=== PATIENT | female | born 1995 | race Caucasian/White ===

== ENCOUNTER 2018-01-29 13:58 | Outpatient (REF) | payer OTHER, SELFPAY ==
[2018-01-29 14:39] LABS: Tricyclic Antidepressants Negative (Negative)
[2018-01-29 14:51] LABS: *AMPHETAMINES SCREEN URINE Negative (Negative); *BARBITURATES SCREEN URINE Negative (Negative); *BENZODIAZEPINES SCREEN URINE Negative (Negative); Cannabinoids THC Negative (Negative); Cocaine Screen,Urine Negative (Negative); METHADONE URINE SCREEN Negative (Negative); OPIATES URINE SCREEN Negative (Negative)
[2018-01-30 15:11] LABS: Chlamydia Result Negative; GC Result Negative; Specimen Description CERVIX
[2018-02-04 11:58] LABS: Buprenorphine Negative; Norbuprenorphine Negative
== END 2018-01-29 14:18 ==
LOC: LBN 13:58
PROVIDERS: PCP Nurse Practitioner Family; Visit Provider Advanced Practice Midwife
DX: Z34.91 Encounter for supervision of normal pregnancy, unspecified, first trimester (principal); Z11.3 Encounter for screening for infections with a predominantly sexual mode of transmission; N89.8 Other specified noninflammatory disorders of vagina
CPT/HCPCS: 80307; 87491; 87591; 87086; 87480; 87510; 87660

== ENCOUNTER 2018-02-06 08:03 | Outpatient (CLI) | payer OTHER, SELFPAY ==
[2018-02-06 08:58] LABS: Abs Immature Grans 0.01 k/cumm (0.0-0.09); Absolute Basophil Count 0.03 k/cumm (0.0-0.2); Absolute Eosinophil Count 0.33 k/cumm (0.0-0.7); Absolute Lymphocyte Count 1.71 k/cumm (1.2-3.4); Absolute Monocyte Count 0.61 k/cumm (0.11-0.7); Absolute Neutrophil Count 7.02 k/cumm (1.2-6.7); Basophils % 0.3; Eosinophils % 3.4; HCT 34.6 % (36.0-46.0); HGB 11.5 g/dL (12.0-15.5); Immature Grans % 0.1; Lymphocytes % 17.6; Mean Corp. HGB Concentration 33.2 g/dL (32.0-36.0); Mean Corpuscular Hemoglobin 27.8 pg (27.0-33.0); Mean Corpuscular Volume 83.8 fL (80-95); Monocytes % 6.3; Neutrophils % 72.3; Platelet Count 293 x1000/uL (130-400); RBC 4.13 m/cumm (4.00-5.20); RBC Distribution Width 14.7 % (11.7-14.6); White Blood Cell Count 9.71 k/cumm (4.4-10.8)
[2018-02-06 09:00] LABS: Glucose,1 Hr (Glucola) 120 mg/dL (80-140)
[2018-02-06 09:52] LABS: TSH (W/Ref FT4) 2.72 uIU/mL (0.358-3.74)
[2018-02-07 10:25] LABS: HIV-1/2 Ag & Ab Screen Negative (NEGAT)
[2018-02-07 10:52] LABS: Hepatitis C Ab w Rflx HCV PCR Negative (NEGAT)
[2018-02-07 11:39] LABS: Hepatitis B Surface Ag Negative (NEGAT); Rubella IgG Ab (UVM) Positive; Syphilis Serology (RPR) Negative (Negative); Varicella IgG Antibody Positive
== END 2018-02-06 08:23 ==
PROVIDERS: PCP Nurse Practitioner Family; Visit Provider Advanced Practice Midwife
DX: Z34.91 Encounter for supervision of normal pregnancy, unspecified, first trimester (principal); Z11.4 Encounter for screening for human immunodeficiency virus [HIV]; Z11.59 Encounter for screening for other viral diseases; Z11.3 Encounter for screening for infections with a predominantly sexual mode of transmission; Z01.84 Encounter for antibody response examination
CPT/HCPCS: 80055; 82950; 86787; 86803; 86850; 86900; 86901; 87340; 87389; 84443; 86592; 86762

== ENCOUNTER 2018-03-27 14:30 | Outpatient (CLI) | payer OTHER, SELFPAY ==
[2018-03-29 16:19] LABS: AFP 41.8 ng/mL; Calculated age at EDD 20 years; Cigarette smoking status non-smoker; GA used in risk estimate Scan estimate; INHIBIN 114 pg/mL; IVF Pregnancy No; Initial or repeat testing Initial testing; Insulin dependent diabetes No; Maternal Weight 230 lbs; Number of Fetuses 1; Physician Phone Number 802-748-7300; Prev Down(T21)/Trisomy Pregnan No; Prev Pregnancy w/NTD No; RECOMMENDED FOLLOW UP None.; Results Summary Normal risk; hCG, TOTAL 24.6 IU/mL; hCG, TOTAL MoM 1.19 MoM; uE3 1.35 ng/mL; uE3 MoM 1.41 MoM
[2018-04-03 12:17] LABS: Result Summary NEGATIVE; Specimen WB Whole Blood
[2018-04-15 09:28] LABS: Specimen Whole Blood
== END 2018-03-27 14:50 ==
PROVIDERS: PCP Nurse Practitioner Family; Visit Provider Advanced Practice Midwife
DX: Z34.92 Encounter for supervision of normal pregnancy, unspecified, second trimester (principal); Z13.228 Encounter for screening for other metabolic disorders; Z36.89 Encounter for other specified antenatal screening
CPT/HCPCS: 36415; 81329; 81511; 81220

== ENCOUNTER 2018-04-04 01:24 | Outpatient (CLI) | payer OTHER, SELFPAY ==
--- NOTE | 2018-04-04 08:00 | DI.US_ITS ---
Many abnormalities cannot be diagnosed. A normal exam does not exclude a congenital anomaly. Radiology No. LMP: 11/28/17 Exam Date: 04/04/18 [facility] wks days on EDC ([facility]) 09/04/18 Confirmed: HISTORY: SURVEY, Z34.90 PREDICTED GESTATIONAL AGE NUMBER 18.1 weeks with a range of 17.1 week to 19.1 weeks. 1 Determined by_X__1STUS___LMP___HISTORY Info. pertaining to fetus # PLACENTA PRESENTATION Grade 0-1 Cephalic_X__ Anterior_X__Posterior___ Breech____ Right Left Transverse(head right___ Fundal___Low-lying___Previa___ Transverse(head left___ Varying BIOMETRY AMNIOTIC FLUID BPD: 43 mm 19.1 weeks Normal HC: 165 mm 19.1 weeks AC: 138 mm 19.1 weeks FL: 27 mm 18.1 weeks AMNIOTIC FLUID INDEX >26 WK CRL: mm weeks Cisterna Magna: 3.8 mm CI: RUQ: LUQ Cerebellum: 1.8 cm EFW: 256 grams 82nd Percentile RLQ: LLQ Total: cms Composite AGE= 18.6 wks EDC by US 08/30/18____ BIOPHYSICAL PROFILE ANATOMY IDENTIFIED SCORE 0/2 Heart: 4-Chamber__X_Rate:BPM__136__ LVOT: X RVOT:___NS Amniotic Fluid(>2cms)____ Stomach:___X____ Kidneys:__X Respirations (>30 secs) Bladder:____X____ Post. Fossa:____X Body Flex/Extension 3 vessel cord:____X___Ventricles: X cord insertion: X Lips:___X_ Extremity Flex/Extension spinal morphology: X___Nose:X Total Score= Palate:___X____ NS=not seen Routine examination. There is a single living intrauterine gestation. Estimated sonographic age is 18 weeks 6 days. No or placental abnormalities are identified. The right ventricular outflow tract was not visualized and the patient is scheduled to return 04/08/18 to complete the anatomic evaluation. IMPRESSION: Single living intrauterine gestation. Estimated sonographic age is 18 weeks 6 days. The patient is scheduled to return 04/08/18 to complete the anatomic evaluation.
== END 2018-04-04 01:44 ==
PROVIDERS: PCP Nurse Practitioner Family; Visit Provider Advanced Practice Midwife
DX: Z34.92 Encounter for supervision of normal pregnancy, unspecified, second trimester (principal)
CPT/HCPCS: 76805

== ENCOUNTER 2018-04-09 01:20 | Outpatient (CLI) | payer OTHER, SELFPAY ==
--- NOTE | 2018-04-09 12:11 | DI.US_ITS ---
SYMPTOMS/DIAGNOSIS: F/U RVOT, TO COMPLETE SURVEY LIMITED OB ULTRASOUND: Comparison is 04/04/18. There is a single living intrauterine gestation. The heart rate is 153 bpm. The right ventricular outflow tract was visualized and is unremarkable. The placenta is anterior without evidence of previa. The amniotic fluid is within normal limits. IMPRESSION: Single living intrauterine gestation. The right ventricular outflow tract was visualized and is grossly unremarkable. Many abnormalities cannot be diagnosed. A normal exam does not exclude a congenital anomaly. Radiology No. [id number] LMP: Exam Date: 04/09/18 [facility] wks days on EDC ([facility]) Confirmed: HISTORY: f/u RVOT PREDICTED GESTATIONAL AGE NUMBER 18+6 weeks with a range of 17+6 weeks to 19+6 weeks. 1 Determined by 1STUS X LMP___HISTORY Info. pertaining to fetus # PLACENTA PRESENTATION Grade I Cephalic___ Anterior X Posterior___ Breech____ Right Left Transverse(head right___ Fundal___Low-lying___Previa___ Transverse(head left___ Varying X BIOMETRY AMNIOTIC FLUID BPD: mm weeks Normal HC: mm weeks AC: mm weeks FL: mm weeks AMNIOTIC FLUID INDEX >26 WK CRL: mm weeks Cisterna Magna: mm CI: RUQ: LUQ Cerebellum: cm EFW: grams Percentile RLQ: LLQ Total: cms Composite AGE= wks EDC by US BIOPHYSICAL PROFILE ANATOMY IDENTIFIED SCORE 0/2 Heart: 4-Chamber___Rate: 153 BPM LVOT: RVOT: X Amniotic Fluid(>2cms)____ Stomach: Kidneys: Respirations (>30 secs) Bladder: Post. Fossa: Body Flex/Extension 3 vessel cord: Ventricles: cord insertion: Lips:____ Extremity Flex/Extension spinal morphology: Nose: Total Score= Palate: NS=not seen
== END 2018-04-09 01:40 ==
PROVIDERS: PCP Nurse Practitioner Family; Visit Provider Advanced Practice Midwife
DX: Z34.92 Encounter for supervision of normal pregnancy, unspecified, second trimester (principal); Z36.2 Encounter for other antenatal screening follow-up
CPT/HCPCS: 76815

== ENCOUNTER 2018-06-19 09:20 | Outpatient (CLI) | payer OTHER, SELFPAY ==
[2018-06-19 15:49] LABS: HCT 29.1 % (36.0-46.0); HGB 9.5 g/dL (12.0-15.5); Mean Corp. HGB Concentration 32.6 g/dL (32.0-36.0); Mean Corpuscular Hemoglobin 26.9 pg (27.0-33.0); Mean Corpuscular Volume 82.4 fL (80-95); Mean Platelet Volume 9.5 fL (8.0-11.0); Platelet Count 305 x1000/uL (130-400); RBC 3.53 m/cumm (4.00-5.20); RBC Distribution Width 12.5 % (11.7-14.6); White Blood Cell Count 12.79 k/cumm (4.4-10.8)
[2018-06-19 15:52] LABS: Glucose,1 Hr (Glucola) 122 mg/dL (80-140)
== END 2018-06-19 09:40 ==
PROVIDERS: PCP Nurse Practitioner Family; Visit Provider Advanced Practice Midwife
DX: Z34.93 Encounter for supervision of normal pregnancy, unspecified, third trimester (principal)
CPT/HCPCS: 36415; 82950; 85027

== ENCOUNTER 2018-07-04 00:40 | Outpatient (CLI) | payer OTHER, SELFPAY ==
--- NOTE | 2018-07-04 11:26 | DI.US_ITS ---
SYMPTOMS/DIAGNOSIS: SIZE > DATES, Z34.90 OB ULTRASOUND: Many abnormalities cannot be diagnosed. A normal exam does not exclude a congenital anomaly. Radiology No. [id number] LMP: Exam Date: [facility] wks days on EDC ([facility]) 09/04/18 Confirmed: HISTORY: PREDICTED GESTATIONAL AGE NUMBER 31+1 weeks with a range of 30+1 weeks to 32+1 weeks. 1 Determined by_X__1ST US___LMP___HISTORY PLACENTA PRESENTATION Grade I-II Cephalic_X__ Anterior_X__Posterior___ Breech____ Right Left Transverse(head right___ Fundal___Low-lying___Previa___ Transverse(head left___ Varying BIOMETRY AMNIOTIC FLUID BPD: 81 mm 32+5 weeks Normal HC: 289 mm 31+5 weeks AC: 276 mm 31+5 weeks FL: 62 mm 32+2 weeks AMNIOTIC FLUID INDEX >26 WK CRL: mm weeks Cisterna Magna: mm CI: 88 RUQ: 3.2 LUQ: 3.4 Cerebellum: cm EFW: 1870 grams Percentile: 66th RLQ: 3.6 LLQ: 4.0 Total: 14.1 cm Composite AGE= 32+1 wks EDC by US: 08/28/18 BIOPHYSICAL PROFILE ANATOMY IDENTIFIED SCORE 0/2 Heart: 4-Chamber___Rate:BPM 128 LVOT: RVOT: Amniotic Fluid(>2cms)____ Stomach: Kidneys: Respirations (>30 secs) Bladder: Post. Fossa: Body Flex/Extension 3 vessel cord: Ventricles: cord insertion: Lips:____ Extremity Flex/Extension spinal morphology: Nose: Total Score= Palate: NS=not seen
== END 2018-07-04 01:00 ==
PROVIDERS: PCP Nurse Practitioner Family; Visit Provider Advanced Practice Midwife
DX: O26.843 Uterine size-date discrepancy, third trimester (principal)
CPT/HCPCS: 76816

== ENCOUNTER 2018-07-09 17:53 | Emergency (ER) | payer OTHER, MEDICAID, SELFPAY ==
[2018-07-09 18:00] VITALS: BP 132/82; PULSE 84; RESP 16; TEMP 36.6; O2SAT 97
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
[2018-07-09] MEDS: Acetaminophen 325 MG TAB 650 MG PO (18:16)
[2018-07-09 18:43] VITALS: BP 133/68; PULSE 89; RESP 20; TEMP 36.7; O2SAT 98
== END 2018-07-09 18:45 | disposition home or self-care (01) ==
PROVIDERS: Emergency Provider Emergency Medicine; PCP Nurse Practitioner Family
DX: R51 Headache (principal); V47.1XXA Car passenger injured in collision with fixed or stationary object in nontraffic accident, initial encounter; Z3A.32 32 weeks gestation of pregnancy
CPT/HCPCS: 99282

== ENCOUNTER 2018-07-09 18:47 | Observation (INO) | payer OTHER, MEDICAID, SELFPAY | END 2018-07-09 23:02 | disposition home or self-care (01) | LOC: OBS 19:03 | PROVIDERS: Admitting Provider Advanced Practice Midwife; PCP Nurse Practitioner Family; Visit Provider Advanced Practice Midwife | DX: Z04.1 Encounter for examination and observation following transport accident (principal); Z3A.31 31 weeks gestation of pregnancy | CPT/HCPCS: G0378 ==

== ENCOUNTER 2018-07-26 02:45 | Outpatient (RCR) | payer OTHER, MEDICAID, SELFPAY ==
[2018-07-26] MEDS: IRON SUCROSE COMPLEX 200 MG in Normal Saline 100 ML 110 MG IVPB (14:05)
[2018-07-26] MEDS: Normal Saline Flush 10 ML SYR IVP (14:05)
== END 2018-07-30 23:59 | disposition home or self-care (01) ==
LOC: INF 02:45
PROVIDERS: PCP Nurse Practitioner Family; Visit Provider Advanced Practice Midwife
DX: O99.013 Anemia complicating pregnancy, third trimester (principal); Z3A.33 33 weeks gestation of pregnancy
CPT/HCPCS: 96365; J1756

== ENCOUNTER 2018-08-06 08:04 | Outpatient (CLI) | payer OTHER, MEDICAID, SELFPAY ==
--- NOTE | 2018-08-06 12:51 | DI.US_ITS ---
SYMPTOMS/DIAGNOSIS: SIZE GREATER THAN DATES LIMITED OBSTETRICAL ULTRASOUND: Predicted Gestational Age: Indication/History: SIZE > DATES 09/04/18 35+6 Wks Range: 34+6 to 36+6 Prior US done on: Determined by: First US LMP X History EDC by prior US: For multiple gestations: Baby PLACENTA: Grade: II Location: X Anterior Posterior PRESENTATION: RT LT LOW LYING PREVIA Cephalic X Trans (Head RT LT ) Varied Breech BIOMETRY: Anatomy Identified: BPD: 88 mm 35+2 wks 4 chamber Heart Heart Rate 137 BPM HC: 324 mm 36+5 wks LVOT Post Fossa AC: 315 mm 35+3 wks RVOT Ventricles FL: 70 mm 36 wks Stomach Nose Bladder Lips Cisterna Magna: mm CI: Kidneys Palate Cerebellum: mm 3 vessel cord Spine EFW: 2741 grms 45% Cord Insertion NS= not seen Composite Age (US) 35+6 wks Many abnormalities cannot be diagnosed. A normal exam does not exclude congenital abnormality. EDC by US 09/04/18 Amniotic Fluid Index: Normal COMMENTS: 6 POUNDS 1 OUNCE RUQ: 2.7 LUQ: 2.3 RLQ: 5.7 LLQ: 3.0 Total: 13.7 cm Biophysical Profile: Score 0/2 URSULA (>2cm) Respirations (>30 sec) Body flexion/extension Extremity flexion/extension TOTAL SCORE There is a single intrauterine gestation. Estimated sonographic age is 35 weeks 6 days. The fetus is in the cephalic presentation. heart rate is 137 beats per minute. anatomic evaluation was not performed at this time. Estimated weight is 2741 g, which is the 45th percentile. Amniotic fluid index is 13.7 cm. Visually, amniotic fluid appears within normal limits. The placenta is anterior without evidence of previa. IMPRESSION: Single living intrauterine gestation. Estimated sonographic age is 35 weeks 6 days.
== END 2018-08-06 08:24 ==
PROVIDERS: PCP Nurse Practitioner Family; Visit Provider Advanced Practice Midwife
DX: Z34.93 Encounter for supervision of normal pregnancy, unspecified, third trimester (principal); O26.843 Uterine size-date discrepancy, third trimester
CPT/HCPCS: 76816

== ENCOUNTER 2018-08-16 14:50 | Outpatient (CLI) | payer OTHER, MEDICAID, SELFPAY ==
[2018-08-16 15:26] LABS: HCT 33.6 % (36.0-46.0); HGB 11.2 g/dL (12.0-15.5); Mean Corp. HGB Concentration 33.3 g/dL (32.0-36.0); Mean Corpuscular Hemoglobin 28.1 pg (27.0-33.0); Mean Corpuscular Volume 84.4 fL (80-95); Mean Platelet Volume 10.4 fL (8.0-11.0); Platelet Count 270 x1000/uL (130-400); RBC 3.98 m/cumm (4.00-5.20); White Blood Cell Count 12.73 k/cumm (4.4-10.8)
[2018-08-16 16:35] LABS: ALT 31 U/L (12-78); AST 20 U/L (15-37); Albumin 2.5 g/dL (3.4-5.0); Alkaline Phosphatase 112 U/L (46-116); Bilirubin, Total 0.2 mg/dL (0.2-1.0); CREATININE 0.71 mg/dL (0.55-1.02)
[2018-08-17 14:40] LABS: Bilirubin, Direct 0.06 mg/dL (0.00-0.20); Uric Acid 5.3 mg/dL (2.6-6.0)
== END 2018-08-16 15:10 ==
PROVIDERS: PCP Nurse Practitioner Family; Visit Provider Advanced Practice Midwife
DX: Z34.93 Encounter for supervision of normal pregnancy, unspecified, third trimester (principal)
CPT/HCPCS: 36415; 80076; 85027; 82565; 84550

== ENCOUNTER 2018-08-16 16:35 | Outpatient (REF) | payer OTHER, MEDICAID, SELFPAY ==
[2018-08-16 17:59] LABS: PROTEIN 43.3 mg/dL
[2018-08-16 18:02] LABS: COMMENT (LAB VIEW ONLY) 256.63 mg/dL; Prot/Crea Ur Ratio 0.16
[2018-08-17 14:44] LABS: *AMPHETAMINES SCREEN URINE Negative (Negative); *BARBITURATES SCREEN URINE Negative (Negative); *BENZODIAZEPINES SCREEN URINE Negative (Negative); Cannabinoids THC Negative (Negative); Cocaine Screen,Urine Negative (Negative); METHADONE URINE SCREEN Negative (Negative); OPIATES URINE SCREEN Negative (Negative)
[2018-08-17 15:21] LABS: Tricyclic Antidepressants Negative (Negative)
[2018-08-23 13:53] LABS: Buprenorphine Negative; Norbuprenorphine Negative
== END 2018-08-16 16:55 ==
LOC: LBN 16:35
PROVIDERS: PCP Nurse Practitioner Family; Visit Provider Advanced Practice Midwife
DX: Z34.93 Encounter for supervision of normal pregnancy, unspecified, third trimester (principal); Z36.85 Encounter for antenatal screening for Streptococcus B
CPT/HCPCS: 80307; 82565; 84156; 87081

== ENCOUNTER 2018-08-23 00:51 | Outpatient (RCR) | payer OTHER, MEDICAID, SELFPAY ==
[2018-08-02] MEDS: IRON SUCROSE COMPLEX 200 MG in Normal Saline 100 ML 110 MG IVPB (13:27)
[2018-08-02] MEDS: Normal Saline Flush 10 ML SYR IVP (13:27)
[2018-08-09] MEDS: Normal Saline Flush 10 ML SYR IVP (13:28)
[2018-08-09] MEDS: IRON SUCROSE COMPLEX 200 MG in Normal Saline 100 ML 110 MG IVPB (13:28)
[2018-08-16] MEDS: Normal Saline Flush 10 ML SYR IVP (13:16)
[2018-08-16] MEDS: IRON SUCROSE COMPLEX 200 MG in Normal Saline 100 ML 110 MG IVPB (13:16)
[2018-08-23] MEDS: Normal Saline Flush 10 ML SYR IVP (13:11)
[2018-08-23] MEDS: IRON SUCROSE COMPLEX 200 MG in Normal Saline 100 ML 110 MG IVPB (13:11)
== END 2018-08-30 23:59 | disposition home or self-care (01) ==
LOC: INF 00:51
PROVIDERS: PCP Nurse Practitioner Family; Visit Provider Advanced Practice Midwife
DX: O99.013 Anemia complicating pregnancy, third trimester (principal); Z3A.37 37 weeks gestation of pregnancy
CPT/HCPCS: 96365; J1756

== ENCOUNTER 2018-08-27 12:09 | Inpatient (IN) | payer OTHER, MEDICAID, SELFPAY ==
[2018-08-27 13:55] LABS: HCT 36.8 % (36.0-46.0); HGB 12.1 g/dL (12.0-15.5); Mean Corp. HGB Concentration 32.9 g/dL (32.0-36.0); Mean Corpuscular Hemoglobin 27.8 pg (27.0-33.0); Mean Corpuscular Volume 84.6 fL (80-95); Mean Platelet Volume 10.7 fL (8.0-11.0); Platelet Count 262 x1000/uL (130-400); RBC 4.35 m/cumm (4.00-5.20); RBC Distribution Width 18.7 % (11.7-14.6); White Blood Cell Count 12.27 k/cumm (4.4-10.8)
[2018-08-27] MEDS: Lactated Ringers 1,000 ML 125 ML IV (14:26)
[2018-08-27] MEDS: miSOPROStol 50 MCG TAB PO (23:07)
[2018-08-27] MEDS: Normal Saline Flush 10 ML SYR IVP (23:07)
[2018-08-28] MEDS: Zolpidem 5 MG TAB 10 MG PO (00:54)
[2018-08-28] MEDS: miSOPROStol 50 MCG TAB PO (03:53)
[2018-08-28] MEDS: Lactated Ringers 1,000 ML 125 ML IV (13:55)
[2018-08-28] MEDS: Lidocaine 1% Multi-Dose 20 ML VIAL ×2 (15:03)
[2018-08-28] MEDS: Acetaminophen 325 MG TAB 650 MG PO (16:09)
[2018-08-28] MEDS: Docusate Sodium 100 MG CAP PO (16:38)
[2018-08-28] MEDS: Hamamelis Leaf/Glycerin 100 EACH BOX PR (16:38)
[2018-08-28] MEDS: Ibuprofen 600 MG TAB PO (18:14)
[2018-08-28] MEDS: Omeprazole 20 MG CAPCR PO (21:06)
[2018-08-29] MEDS: Ibuprofen 600 MG TAB PO ×3 (05:15→22:33)
[2018-08-29 07:25] LABS: HCT 31.5 % (36.0-46.0); Mean Corp. HGB Concentration 31.7 g/dL (32.0-36.0); Mean Corpuscular Hemoglobin 27.5 pg (27.0-33.0); Mean Corpuscular Volume 86.8 fL (80-95); Mean Platelet Volume 10.4 fL (8.0-11.0); Platelet Count 201 x1000/uL (130-400); RBC 3.63 m/cumm (4.00-5.20); RBC Distribution Width 19.1 % (11.7-14.6)
[2018-08-29] MEDS: Hamamelis Leaf/Glycerin 100 EACH BOX PR (09:38)
[2018-08-29] MEDS: Normal Saline Flush 10 ML SYR IVP (09:39)
[2018-08-29] MEDS: Acetaminophen 325 MG TAB 650 MG PO ×3 (09:47→21:54)
[2018-08-29] MEDS: Omeprazole 20 MG CAPCR PO (20:02)
[2018-08-29] MEDS: FLUoxetine 20 MG CAP PO (20:02)
[2018-08-30] MEDS: Acetaminophen 325 MG TAB 650 MG PO ×2 (06:12→14:41)
[2018-08-30] MEDS: Hamamelis Leaf/Glycerin 100 EACH BOX PR (11:11)
[2018-08-30] MEDS: Docusate Sodium 100 MG CAP PO (11:12)
[2018-08-30] MEDS: Ibuprofen 600 MG TAB PO (14:42)
== END 2018-08-30 15:15 | disposition home or self-care (01) | DRG 807 ==
PROVIDERS: Advanced Practice Midwife; Admitting Provider Advanced Practice Midwife; PCP Nurse Practitioner Family; Visit Provider Advanced Practice Midwife
DX: O42.02 Full-term premature rupture of membranes, onset of labor within 24 hours of rupture (principal); Z37.0 Single live birth; O76 Abnormality in fetal heart rate and rhythm complicating labor and delivery; O70.1 Second degree perineal laceration during delivery; Z3A.38 38 weeks gestation of pregnancy; O99.214 Obesity complicating childbirth; E66.01 Morbid (severe) obesity due to excess calories; O99.02 Anemia complicating childbirth; D64.9 Anemia, unspecified; O99.344 Other mental disorders complicating childbirth; F32.9 Major depressive disorder, single episode, unspecified; Z79.82 Long term (current) use of aspirin; Z67.10 Type A blood, Rh positive
CPT/HCPCS: 36415; 85027; 86850; 86900; 86901; 59200; J3490

== ENCOUNTER 2019-01-08 18:00 | Emergency (ER) | payer BC, SELFPAY ==
[2019-01-08 18:35] VITALS: BP 102/59; RESP 16; TEMP 36.5; O2SAT 95
[2019-01-08 19:55] VITALS: BP 112/73; PULSE 62; RESP 18; TEMP 36.4; O2SAT 98
--- NOTE | 2019-01-08 19:59 | ED.GENADUL_ITS ---
Discharge Plan Disposition Patient Disposition: HOME Condition: Good Discharge Details Chief Complaint: Sorethroat Clinical Impression: Upper respiratory infection, viral Primary Care Provider: Cindy Hill ED Provider: Julio Zimmemran Home Meds and New Rx's Prescriptions: Continued albuterol sulfate [ProAir HFA] 90 mcg/actuation HFA aerosol inhaler 2 puff IH PRN PRNRF: 0 (DME) inhaler,assist devices,access device See Dose Instructions .ROUTE .MEDSUPPLY Qty: 1 RF: 0 norethindrone (contraceptive) [Mehnaz] 0.35 mg tablet 0.35 mg PO DAILY Qty: 28 RF: 11 loratadine 10 MG tablet 10 mg PO PRN PRNRF: 0 omeprazole 20 mg tablet,delayed release (DR/EC) 20 - 40 mg PO DAILY Qty: 180 RF: 4 fluoxetine 20 mg capsule 20 mg PO DAILY Qty: 30 RF: 3 Discharge Instructions Instructions: Upper Respiratory Infection (ED) Additional Instructions: This is likely viral so you are still contagious. Good hand washing and respiratory precautions. Rest, fluids and Tylenol or Motrin for pain/discomfort. Follow up with PCP next week if not doing better. Strep culture is pending. Return to ED for inability to swallow, difficulty breathing, mental status changes, severe headache, vomiting, other concerns. Referrals: Cindy Hill, JULIO [Primary Care Provider] - Discharge Data Discharge Date/Time-TO BE ENTERED AT DEPARTURE: 01/08/19 20:10 Medical Decision Making Rapid strep is negative. Patient likely with a viral illness including sinus and nasal congestion with postnasal drip and sore throat. Strep culture has been sent. Patient instructed on hand hygiene and respiratory adequate. Tylenol Motrin as needed for pain discomfort. Fluids to stay hydrated. Follow- up with primary care next week if not significantly better. Return to ED if inability to swallow, difficulty breathing, worsening headaches, neurologic changes, vomiting, other concerns. HPI General Mode of arrival: ambulatory . Date/Time Provider Initiated Documentation: 01/08/19 19:52 . Limitations to Documentation: no limitations . Information obtained by: patient and RN notes reviewed . HPI Narrative: Patient presents to ED with complaint of sore throat, congestion for the last few days. She has a slight cough. She denies fever. She has a lot of sinus pressure and congestion. She denies earaches. She denies difficulty breathing. She denies nausea vomiting. She is concerned for strep throat and came in for evaluation. Related Data Home Medications Medication Instructions Recorded Confirmed loratadine 10 mg PO PRN PRN 02/15/16 01/08/19 albuterol sulfate 90 mcg/actuation 2 puff IH PRN PRN 12/11/17 01/08/19 aerosol inhaler inhaler,assist devices,access #1 each 12/11/17 10/09/18 omeprazole 20 mg tablet,delayed 20 - 40 mg PO DAILY #180 tab 08/21/18 01/08/19 release norethindrone (contraceptive) 0.35 0.35 mg PO DAILY #28 tab 10/09/18 01/08/19 mg tablet fluoxetine 20 mg capsule 20 mg PO DAILY #30 cap 11/27/18 01/08/19 Previous Rx's Medication Instructions Recorded omeprazole 20 mg tablet,delayed 20 - 40 mg PO DAILY #180 tab 08/21/18 release norethindrone (contraceptive) 0.35 0.35 mg PO DAILY #28 tab 10/09/18 mg tablet fluoxetine 20 mg capsule 20 mg PO DAILY #30 cap 11/27/18 Allergies Allergy/AdvReac Type Severity Reaction Status Date / Time erythromycin ethylsuccinate Allergy Verified 01/08/19 18:39 [From Pediazole] General Stated Complaint: Sorethroat LORENE: 4 Review of Systems Review of Systems Narrative: As documented in HPI otherwise negative as below. Const: no fever, chills, weakness Resp: no cough, SOB, pleuritic pain CV: no CP, diaphoresis, edema, syncope GI: no abdominal pain, nausea, vomiting, diarrhea Neuro: no headache, numbness, focal weakness, confusion [facility] Medical History Asthma, exercise induced BMI 38.0-38.9,adult (Chronic) Family history of factor V Leiden mutation (Chronic) Maternal aunt GERD (gastroesophageal reflux disease) (Chronic 10/15/17) Heart murmur Intermittent asthma (Chronic 08/17/15) Major depressive disorder (Acute 10/15/17) Surgical History Myringotomy w/ PE (pressure equalizing) tubes (08/30/01) bilateral Oral surgery 2015 [place] teeth Tooth extraction Social History Smoking/Tobacco Use Status: Never Alcohol Intake: never Drug use: Never Substance use type: does not use Pets and animals: Yes Pets and animals: dog(s) Frequency: daily Special zheng needs: No Seatbelt use: always Helmet use: Yes Do you feel safe at home: Yes Do you feel safe in your relationship?: Yes Female Reproductive History Menstrual control method: none History History 1 Para 0 Hx # Term Pregnancies 0 Multiple births 0 Hx # Pregnancies 0 Ectopic pregnancies 0 AB induced 0 Hx Number of Living Children 1 AB spontaneous 0 Past Pregnancies Del. Date GA/Weeks # Outcome Route Wgt Sex Labor Lgth Anesthes ia Location Prov Complic 08/28/18 39 No Successful vaginal 3.487 kg Male 8 hrs. 27 min. Shaylee Beebe CNM Delivery Date: 08/28/18 On 08/29/18 @ 13:51 Bhumi San LPN premature rupture of membranes induction- reason/premature rupture of membranes Exam Narrative Exam Narrative: Vitals: Afebrile. Normal vital signs and room air pulse oximetry. Const: Obese female in NAD. HEENT: NC/AT. Normal facial exam.. TMs normal. No sinus tenderness. OP with erythema and fairly large but symmetric tonsils. No ulcers or exudate. Some posterior oropharyngeal cobblestoning. Eyes: Normal conjunctiva and sclera. Neck: Supple. Trachea midline. No adenopathy. Lungs: Normal respiratory effort. Lungs are clear. Cor: RRR without murmur/gallop. Good radial pulses. Neuro: A+O x 3. CN grossly in tact. Good strength and no focal deficit. Skin: Warm and dry without rash. Course Vital Signs Vital signs: Vital Signs Temperature 97.7 F 01/08/19 18:35 Respiratory Rate 16 01/08/19 18:35 Blood Pressure 102/59 L 01/08/19 18:35 Pulse Oximetry 95 01/08/19 18:35 Temperature 97.5 F L 01/08/19 19:55 Temperature Source Skin 01/08/19 19:55 Pulse 62 01/08/19 19:55 Respiratory Rate 18 01/08/19 19:55 Respiratory Effort 01/08/19 18:43 Blood Pressure 112/73 01/08/19 19:55 Blood Pressure Position Sitting 01/08/19 18:35 Pulse Oximetry 98 01/08/19 19:55 Oxygen Delivery Method Room Air 01/08/19 19:55 Oxygen Flow Rate 0 01/08/19 19:55 Pain Level 6 01/08/19 18:35 Lab/Test Results Lab/Test Results: 01/08/19 19:52 Pharynx Streptococcus Screen (SHYANN) - Pending POC Strep Test-CHALINO(Rapid) Start: 01/08/19 18:43 Freq: .Rapid Strep Test Status: Active Protocol: Document 01/08/19 19:51 MM (Rec: 01/08/19 19:51 MM [id number]) Strep test-CHALINO(Rapid)-POC POC-Strep test-CHALINO (Rapid) Negative POC-Strep test-CHALINO (Rapid) Negative
== END 2019-01-08 20:10 | disposition home or self-care (01) ==
PROVIDERS: Emergency Provider Emergency Medicine; PCP Nurse Practitioner Family
DX: J06.9 Acute upper respiratory infection, unspecified (principal)
CPT/HCPCS: 87880; 99282; 87081

== ENCOUNTER 2019-04-30 18:57 | Emergency (ER) | payer MEDICAID, SELFPAY ==
[2019-04-30 18:59] VITALS: BP 118/78; PULSE 72; RESP 20; TEMP 37; O2SAT 98
--- NOTE | 2019-04-30 19:08 | W.ED.GENAD ---
Discharge Plan Disposition Patient Disposition: HOME Condition: Stable Discharge Details Chief Complaint: EarProblem Clinical Impression: Acute left otitis media Primary Care Provider: Cindy Hill ED Provider: Maxim Minaya Home Meds and New Rx's Prescriptions: Continued amoxicillin-pot clavulanate 875-125 mg tablet 1 tab PO Q12H Qty: 14 RF: 0 omeprazole 20 mg capsule,delayed release(DR/EC) 20 mg PO DAILY Qty: 90 RF: 4 famotidine 20 mg tablet 20 mg PO QHS Qty: 90 RF: 4 albuterol sulfate [ProAir HFA] 90 mcg/actuation HFA aerosol inhaler 2 puff IH PRN PRNRF: 0 (DME) inhaler,assist devices,access device See Dose Instructions .ROUTE .MEDSUPPLY Qty: 1 RF: 0 norethindrone (contraceptive) [Mehnaz] 0.35 mg tablet 0.35 mg PO DAILY Qty: 28 RF: 11 loratadine 10 MG tablet 10 mg PO PRN PRNRF: 0 omeprazole 20 mg tablet,delayed release (DR/EC) 20 - 40 mg PO DAILY Qty: 180 RF: 4 fluoxetine 20 mg capsule 20 mg PO DAILY Qty: 30 RF: 3 Discharge Instructions Instructions: Otitis Media (ED) Additional Instructions: Continue the previously prescribed Augmentin. Please take the next dose of prescribed prednisone tomorrow. Tylenol and/or ibuprofen as needed for pain. Stay liberally hydrated. Return for any acute concerns. Medical Decision Making 23-year-old female who is currently breast-feeding. She was seen in the office earlier today for 6 approximately 6 days of sinus pain and pressure for which she was started on Augmentin. Tonight she complains of left ear pain and seeks reevaluation. She does have evidence of acute left otitis media, there is no perforation, no foreign object present. We will trial a small moderate burst of prednisone for anti-inflammatory properties to ease her ear congestion. She will continue the previously prescribed Augmentin as well as iipn-eyj-orvpjen pain medicines as needed. HPI General Mode of arrival: ambulatory. Date/Time Provider Initiated Documentation: 04/30/19 18:58. Limitations to Documentation: no limitations. Information obtained by: patient. History of Present Illness 23 year old F presents to the emergency department with the chief complaint of Left ear pain, described as moderate and similar to prior episodes, and is localized to the head and left. Patient reports no radiation. Patient started experiencing this hour(s) and it has been constant. No relieving factors improve symptom(s), No exacerbating factors reported . Patient notes other (Sinus pain and pressure for nearly a week). Patient did receive the following treatments prior to arrival, other (Started on Augmentin earlier today) Related Data Home Medications Medication Instructions Recorded Confirmed loratadine 10 mg PO PRN PRN 02/15/16 04/30/19 albuterol sulfate 90 mcg/actuation 2 puff IH PRN PRN 12/11/17 04/30/19 aerosol inhaler inhaler,assist devices,access #1 each 12/11/17 04/30/19 omeprazole 20 mg tablet,delayed 20 - 40 mg PO DAILY #180 tab 08/21/18 04/30/19 release norethindrone (contraceptive) 0.35 0.35 mg PO DAILY #28 tab 10/09/18 04/30/19 mg tablet fluoxetine 20 mg capsule 20 mg PO DAILY #30 cap 11/27/18 04/30/19 amoxicillin 875 mg-potassium 1 tab PO Q12H #14 tab 04/30/19 04/30/19 clavulanate 125 mg tablet famotidine 20 mg tablet 20 mg PO QHS #90 tab 04/30/19 04/30/19 omeprazole 20 mg capsule,delayed 20 mg PO DAILY #90 cap 04/30/19 04/30/19 release Previous Rx's Medication Instructions Recorded omeprazole 20 mg tablet,delayed 20 - 40 mg PO DAILY #180 tab 08/21/18 release norethindrone (contraceptive) 0.35 0.35 mg PO DAILY #28 tab 10/09/18 mg tablet fluoxetine 20 mg capsule 20 mg PO DAILY #30 cap 11/27/18 amoxicillin 875 mg-potassium 1 tab PO Q12H #14 tab 04/30/19 clavulanate 125 mg tablet famotidine 20 mg tablet 20 mg PO QHS #90 tab 04/30/19 omeprazole 20 mg capsule,delayed 20 mg PO DAILY #90 cap 04/30/19 release Allergies Allergy/AdvReac Type Severity Reaction Status Date / Time erythromycin ethylsuccinate Allergy Verified 04/30/19 19:01 [From Pediazole] General Stated Complaint: EarProblem LORENE: 4 Review of Systems Narrative: 6 systems reviewed and otherwise negative [facility], [facility] Medical History Allergic rhinitis (Chronic) GERD (gastroesophageal reflux disease) (Chronic) Major depressive disorder (Chronic) Mild intermittent asthma (Inactive) Mostly exercise induced Social History Smoking/Tobacco Use Status: Never Alcohol Intake: never Drug use: Never Substance use type: does not use Pets and animals: Yes Pets and animals: dog(s) Frequency: daily Special zheng needs: No Seatbelt use: always Helmet use: Yes Do you feel safe at home: Yes Do you feel safe in your relationship?: Yes Female Reproductive History Menstrual control method: none History History 1 Para 0 Hx # Term Pregnancies 0 Multiple births 0 Hx # Pregnancies 0 Ectopic pregnancies 0 AB induced 0 Hx Number of Living Children 1 AB spontaneous 0 Past Pregnancies Del. Date GA/Weeks # Outcome Route Wgt Sex Labor Lgth Anesthesia Location Prov Complic 08/28/18 39 No Successful vaginal 3.487 kg Male 8 hrs. 27 min. Shaylee Beebe CNM Delivery Date: 08/28/18 On 08/29/18 @ 13:51 Bhumi San LPN premature rupture of membranes induction- reason/premature rupture of membranes Exam Narrative Exam Narrative: GEN: awake, alert, oriented 3. Pleasant, well groomed, interactive. HEAD: Normocephalic, atraumatic ENT: Mucous membranes moist, oropharynx unremarkable, left tympanic membrane distended and erythematous, right tympanic membrane unremarkable. External ear exam unremarkable EYES: PERRL, EOMI NECK: Full ROM, no ABEL, no menigismus CHEST/RESP: Nontender, clear to auscultation bilateral, no wheeze/rhonchi/rales CARDIOVASCULAR: RRR, no murmur, rub jonnathan. 2+ Rad pulse bilateral Neuro: Grossly normal neurologic exam, conversant, interactive. Psych: Speech fluent, thoughts congruent, affect normal Course Vital Signs Vital signs: Vital Signs Temperature 37 C 04/30/19 18:59 Pulse 72 04/30/19 18:59 Respiratory Rate 20 04/30/19 18:59 Blood Pressure 118/78 04/30/19 18:59 Pulse Oximetry 98 04/30/19 18:59 Temperature 37 C 04/30/19 18:59 Temperature Source Temporal Artery Scan 04/30/19 18:59 Pulse 72 04/30/19 18:59 Respiratory Rate 20 04/30/19 18:59 Respiratory Effort Non-Labored 04/30/19 19:03 Blood Pressure 118/78 04/30/19 18:59 Pulse Oximetry 98 04/30/19 18:59 Oxygen Delivery Method Room Air 04/30/19 18:59 Oxygen Flow Rate 0 04/30/19 18:59 Pain Level 8 04/30/19 19:03
[2019-04-30] MEDS: predniSONE 20 MG TAB 40 MG PO (19:14)
[2019-04-30] MEDS: Acetaminophen 500 MG TAB 1000 MG PO (19:14)
[2019-04-30 19:15] VITALS: BP 118/78; PULSE 72; RESP 20; O2SAT 98
== END 2019-04-30 19:25 | disposition home or self-care (01) ==
LOC: ER 19:12
PROVIDERS: Emergency Provider Emergency Medicine; PCP Nurse Practitioner Family
DX: H66.92 Otitis media, unspecified, left ear (principal)
CPT/HCPCS: 99283; J7512

== ENCOUNTER 2019-12-03 10:01 | Emergency (ER) | payer MEDICAID, SELFPAY ==
[2019-12-03 10:07] VITALS: BP 120/89; PULSE 73; RESP 16; TEMP 36.9; O2SAT 97
--- NOTE | 2019-12-03 10:20 | ED.GENADUL_ITS ---
Discharge Plan Disposition Patient Disposition: HOME Condition: Good Discharge Details Chief Complaint: Sorethroat Clinical Impression: Pharyngitis Primary Care Provider: Cindy Hill ED Provider: Randall Lakhani Home Meds and New Rx's Prescriptions: Continued omeprazole 20 mg capsule,delayed release(DR/EC) 20 mg PO DAILY Qty: 90 RF: 4 albuterol sulfate [ProAir HFA] 90 mcg/actuation HFA aerosol inhaler 2 puff IH PRN PRNRF: 0 (DME) inhaler,assist devices,access device See Dose Instructions .ROUTE .MEDSUPPLY Qty: 1 RF: 0 norethindrone (contraceptive) [Mehnaz] 0.35 mg tablet 0.35 mg PO DAILY Qty: 28 RF: 11 loratadine 10 MG tablet 10 mg PO PRN PRNRF: 0 omeprazole 20 mg tablet,delayed release (DR/EC) 20 - 40 mg PO DAILY Qty: 180 RF: 4 fluoxetine 20 mg capsule 20 mg PO DAILY Qty: 30 RF: 3 Discharge Instructions Instructions: Pharyngitis (ED) Additional Instructions: At this time your strep test is negative, your symptoms are likely from a virus. These usually improve after 72 hours. Please gargle with salt water 2-3 times per day. Take Tylenol and Motrin to help with the swelling and pain. If you notice any worsening of your symptoms, or any new symptoms such as vomiting, diarrhea, fever, chills, shortness of breath, chest pain, numbness, weakness, or fainting , please return immediately to the emergency department for reevaluation. Please follow up with your primary care provider as soon as possible for reassessment and reevaluation. As always, it was a pleasure participating in your medical care today. Referrals: Cindy Hill NP [Primary Care Provider] - Discharge Data Discharge Date/Time-TO BE ENTERED AT DEPARTURE: 12/03/19 10:30 Medical Decision Making 24-year-old female with a past medical history of asthma presents for sore throat for the last 2 days. She denies any cough, fever or chills, no neck pain or headache. She does have history of enlarged tonsils at baseline. She denies any complaints of difficulty swallowing. 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 No other complaints at this time. No other modifying factors. Physical exam demonstrates a notably unremarkable posterior oropharynx aside for mild tonsillar enlargement which appears to be her baseline, they are notably noninfectious looking at this time. Strep test is negative, symptoms appear inconsistent with mono, with no splenomegaly on exam, or spleen tenderness. No known sick contacts with mono recently. No signs of airway compromise. This time with no significant fatigue and signs and symptoms inconsistent with mono I do feel that she can be discharged home. Signs and symptoms likely consistent with viral upper respiratory infection. Discussed red flags which return. I have extensively reviewed the treatment plan and discharge instructions with the patient. I have addressed all patient concerns at this time. The patient was made aware of what symptoms to monitor for that would warrant a return to the emergency department. Discussed the plan with the patient, they demonstrate verbal understanding and agreement with our assessment and plan at this time. HPI General Date/Time Provider Initiated Documentation: 12/03/19 10:10 . HPI Narrative: 24-year-old female with a past medical history of asthma presents for sore throat for the last 2 days. She denies any cough, fever or chills, no neck pain or headache. She does have history of enlarged tonsils at baseline. She denies any complaints of difficulty swallowing. 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 No other complaints at this time. No other modifying factors. Related Data Home Medications Medication Instructions Recorded Confirmed loratadine 10 mg PO PRN PRN 02/15/16 12/03/19 albuterol sulfate 90 mcg/actuation 2 puff IH PRN PRN 12/11/17 12/03/19 aerosol inhaler inhaler,assist devices,access #1 each 12/11/17 12/02/19 omeprazole 20 mg tablet,delayed 20 - 40 mg PO DAILY #180 tab 08/21/18 04/30/19 release norethindrone (contraceptive) 0.35 0.35 mg PO DAILY #28 tab 10/09/18 04/30/19 mg tablet omeprazole 20 mg capsule,delayed 20 mg PO DAILY #90 cap 04/30/19 12/03/19 release fluoxetine 20 mg capsule 20 mg PO DAILY #30 cap 05/09/19 12/03/19 Previous Rx's Medication Instructions Recorded omeprazole 20 mg tablet,delayed 20 - 40 mg PO DAILY #180 tab 08/21/18 release norethindrone (contraceptive) 0.35 0.35 mg PO DAILY #28 tab 10/09/18 mg tablet omeprazole 20 mg capsule,delayed 20 mg PO DAILY #90 cap 04/30/19 release fluoxetine 20 mg capsule 20 mg PO DAILY #30 cap 05/09/19 Allergies Allergy/AdvReac Type Severity Reaction Status Date / Time erythromycin ethylsuccinate Allergy Verified 12/03/19 10:11 [From Pediazole] General Stated Complaint: Sorethroat LORENE: 4 Review of Systems All systems reviewed & are unremarkable except as noted in HPI and below PFSH Medical History Allergic rhinitis (Chronic) GERD (gastroesophageal reflux disease) (Chronic) Major depressive disorder (Chronic) Mild intermittent asthma (Inactive) Mostly exercise induced Family History Mother Type 2 diabetes mellitus Father No problems noted. Sister Depression ADHD Sister ADHD Sister ADHD Son No problems noted. Maternal Grandfather Heart disease Maternal Grandmother Type 2 diabetes mellitus Maternal Aunt Factor 5 Leiden mutation, heterozygous Paternal Grandfather Asthma Paternal Grandmother Asthma Social History Smoking/Tobacco Use Status: Never Alcohol Intake: never Drug use: Never Substance use type: does not use Pets and animals: Yes Pets and animals: dog(s) Frequency: daily Special zheng needs: No Seatbelt use: always Helmet use: Yes Do you feel safe at home: Yes Do you feel safe in your relationship?: Yes Female Reproductive History Menstrual control method: none History History 1 Para 0 Hx # Term Pregnancies 0 Multiple births 0 Hx # Pregnancies 0 Ectopic pregnancies 0 AB induced 0 Hx Number of Living Children 1 AB spontaneous 0 Past Pregnancies Del. Date GA/Weeks # Outcome Route Wgt Sex Labor Lgth Anesthes ia Location Prov Complic 08/28/18 39 No Successful vaginal 3.487 kg Male 8 hrs. 27 min. Shaylee Beebe CNM Delivery Date: 08/28/18 premature rupture of membranes induction- reason/premature rupture of membranes Bhumi San LPN Exam Narrative Exam Narrative: 1.Const: Well-nourished, Well-developed, appearing stated age 2.Eyes: PERRL, no conjunctival injection, and symmetrical lids. 3.ENT: Atraumatic external nose and ears. Moist MM. Neck: Symmetric, trachea midline, No thyromegaly. Posterior oropharynx demonstrates no erythema or tonsillar exudate. There is a single tonsil with, but no other abnormalities. Tonsils are large, but notably nonerythematous demonstrating no signs of significant infection or irritation. Minimal cobblestoning of posterior oropharynx. No signs of airway compromise, no significant cervical lymphadenopathy. Patient demonstrates good movement of cervical neck. There is no nuchal rigidity, no nuchal tenderness. Patient is able to flex the neck without any difficulty or significant pain. Negative Kernig's and Brudzinski sign. 4.CVS: +S1/S2, No murmurs or gallops. Peripheral pulses 2+ and equal in all extremities. Brisk capillary refill in all extremities. 5.RESP: Unlabored respiratory effort. Clear to auscultation bilaterally. No wheezes rales or rhonchi 6.GI: Soft, Nontender/Nondistended, No hepatosplenomegaly. No guarding or rebound. 7.MSK: Normocephalic/Atraumatic, Extremities w/o deformity or ttp No cyanosis or clubbing, Normal movement of all extremities 8.Skin: Warm, Dry. No rashes or lesions. 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 Sensation grossly intact, no focal neurologic deficits. 10.Psych: (AAO) x3. Appropriate mood and affect Course Vital Signs Vital signs: Vital Signs Temperature 36.9 C 12/03/19 10:07 Pulse 73 12/03/19 10:07 Respiratory Rate 16 12/03/19 10:07 Blood Pressure 120/89 12/03/19 10:07 Pulse Oximetry 97 12/03/19 10:07 Temperature 36.9 C 12/03/19 10:07 Temperature Source Oral 12/03/19 10:07 Pulse 73 12/03/19 10:07 Respiratory Rate 16 12/03/19 10:07 Respiratory Effort 12/03/19 10:13 Blood Pressure 120/89 12/03/19 10:07 Blood Pressure Position Sitting 12/03/19 10:07 Pulse Oximetry 97 12/03/19 10:07 Oxygen Delivery Method Room Air 12/03/19 10:07 Oxygen Flow Rate 0 12/03/19 10:07 Pain Level 7 12/03/19 10:07 Lab/Test Results Lab/Test Results: 12/03/19 10:13 Pharynx Streptococcus Screen (SHYANN) - Pending POC Strep Test-CHALINO(Rapid) Start: 12/03/19 10:09 Freq: .Rapid Strep Test Status: Active Protocol: Document 12/03/19 10:09 (Rec: 12/03/19 10:13 AW [email or web address]) Strep test-CHALINO(Rapid)-POC POC-Strep test-CHALINO (Rapid) Negative POC-Strep test-CHALINO (Rapid) Negative
== END 2019-12-03 10:30 | disposition home or self-care (01) ==
PROVIDERS: Emergency Provider Student in an Organized Health Care Education/Training Program; PCP Nurse Practitioner Family
DX: J02.8 Acute pharyngitis due to other specified organisms (principal)
CPT/HCPCS: 87880; 99282; 87081; 99283

== ENCOUNTER 2020-03-15 18:39 | Emergency (ER) | payer MEDICAID, SELFPAY ==
[2020-03-15 18:42] VITALS: BP 109/58; PULSE 70; RESP 16; TEMP 36.6; O2SAT 97
--- NOTE | 2020-03-15 18:42 | ED.GENADUL_ITS ---
Discharge Plan Disposition Patient Disposition: HOME Condition: Stable Discharge Details Clinical Impression: Acute pain of right ear, Acute effusion of right ear Primary Care Provider: Cindy Hill ED Provider: Candida Arguello Home Meds and New Rx's Prescriptions: New amoxicillin 500 mg tablet 500 mg PO TID 7 Days Qty: 21 RF: 0 Continued omeprazole 20 mg capsule,delayed release(DR/EC) 20 mg PO DAILY Qty: 90 RF: 4 albuterol sulfate [ProAir HFA] 90 mcg/actuation HFA aerosol inhaler 2 puff IH PRN PRNRF: 0 (DME) inhaler,assist devices,access device See Dose Instructions .ROUTE .MEDSUPPLY Qty: 1 RF: 0 loratadine 10 MG tablet 10 mg PO PRN PRNRF: 0 fluoxetine 20 mg capsule 20 mg PO DAILY Qty: 90 RF: 4 Discharge Instructions Instructions: Ear Infection (ED), Earache (ED) Additional Instructions: Alternate tylenol and motrin as needed and directed for pain. You can see if your symptoms improve with pain control before starting the antibiotics. If your symptoms do not improve or worsen over the next 2 days, you can consider starting the antibiotics. If your symptoms do not improve after several days of antibiotics, you may need a round of steroids. Follow-up with your primary care doctor in 1 week. Return to the emergency department with any worsening or new concerning symptoms. Discharge Data Discharge Physician: Candida Arguello Medical Decision Making 24-year-old female with a history of ear infections and bilateral myringotomy tubes as a child presents with right ear pain since morning. Right TM appears to have fluid behind it. There is no erythema. There is some bulging. Patient appears nontoxic. No submandibular swelling, lymphadenopathy and mastoid normal to inspection and palpation. Discussed with patient that this could likely be viral and may resolve with symptomatic pain control. Patient fears that her symptoms will worsen she will require antibiotics. We will give a prescription for amoxicillin if symptoms do not improve or worsen. Advised to follow up with the primary care doctor for re-evaluation. Usual and customary return precautions given prior to discharge. Medical Records Medical records reviewed: Yes I reviewed the patient's medical records. HPI General Mode of arrival: ambulatory . Date/Time Provider Initiated Documentation: 03/15/20 18:41 . Limitations to Documentation: no limitations . Information obtained by: patient . HPI Narrative: Patient is a 24-year-old female who presents with right ear pain since this morning. She has a history of frequent ear infections and bilateral myringotomy tubes as a child and states this feels similar. She denies any recent antibiotics or known sick contacts. She states the pain is deep within her right ear but denies any fever or draina ge. She denies any sore throat or dental pain. Related Data Home Medications Medication Instructions Recorded Confirmed loratadine 10 mg PO PRN PRN 02/15/16 03/15/20 albuterol sulfate 90 mcg/actuation 2 puff IH PRN PRN 12/11/17 03/15/20 aerosol inhaler inhaler,assist devices,access #1 each 12/11/17 12/11/19 omeprazole 20 mg capsule,delayed 20 mg PO DAILY #90 cap 04/30/19 03/15/20 release fluoxetine 20 mg capsule 20 mg PO DAILY #90 tab-cap 01/08/20 03/15/20 amoxicillin 500 mg PO TID 7 Days #21 tab 03/15/20 Previous Rx's Medication Instructions Recorded omeprazole 20 mg capsule,delayed 20 mg PO DAILY #90 cap 04/30/19 release fluoxetine 20 mg capsule 20 mg PO DAILY #90 tab-cap 01/08/20 amoxicillin 500 mg PO TID 7 Days #21 tab 03/15/20 Allergies Allergy/AdvReac Type Severity Reaction Status Date / Time erythromycin ethylsuccinate Allergy Verified 03/15/20 18:47 [From Pediazole] General LORENE: 4 Review of Systems All systems reviewed & are unremarkable except as noted in HPI and below Constitutional Constitutional: Reports as per HPI, Denies chills and Denies fever(s) Eyes Eyes: Denies blurry vision ENT Ears, Nose, Mouth, and Throat: Denies dizziness, Reports otalgia, Denies sore throat and Denies throat swelling Cardiovascular Cardiovascular: Denies chest pain and Denies dyspnea Respiratory Respiratory: Denies cough and Denies dyspnea Gastrointestinal Gastrointestinal: Denies abdominal pain, Denies diarrhea and Denies vomiting Genitourinary Genitourinary: Denies hematuria and Denies dysuria Musculoskeletal Musculoskeletal: Denies back pain and Denies numbness Integumentary/Breasts Skin/Breast: Denies lesions and Denies rash Neurologic Neurologic: Denies dizziness, Denies localized weakness and Denies numbness Allergic/Immunologic Allergic/Immunologic: Denies throat swelling [facility] Medical History (Updated 03/15/20 @ 19:21 by Candida Arguello DO) Allergic rhinitis DUB (dysfunctional uterine bleeding) GERD (gastroesophageal reflux disease) Major depressive disorder Mild intermittent asthma Mostly exercise induced Nipple discharge Family History Mother Type 2 diabetes mellitus Father No problems noted. Sister Depression ADHD Sister ADHD Sister ADHD Son No problems noted. Maternal Grandfather Heart disease Maternal Grandmother Type 2 diabetes mellitus Maternal Aunt Factor 5 Leiden mutation, heterozygous Paternal Grandfather Asthma Paternal Grandmother Asthma Social History Smoking/Tobacco Use Status: Never Smoking risk assessment performed?: Yes Alcohol Intake: never Drug use: Never Substance use type: does not use Pets and animals: Yes Pets and animals: dog(s) Frequency: daily Special zheng needs: No Seatbelt use: always Helmet use: Yes Do you feel safe at home: Yes Do you feel safe in your relationship?: Yes Female Reproductive History Menstrual control method: none History History 1 Para 0 Hx # Term Pregnancies 0 Multiple births 0 Hx # Pregnancies 0 Ectopic pregnancies 0 AB induced 0 Hx Number of Living Children 1 AB spontaneous 0 Past Pregnancies Del. Date GA/Weeks # Outcome Route Wgt Sex Labor Lgth Anesthes ia Location [facility] 08/28/18 39 No Successful vaginal 3486.991 g Male 8 hrs. 27 min. Shaylee Beebe CNM Delivery Date: 08/28/18 premature rupture of membranes induction- reason/premature rupture of membranes Bhumi San LPN Exam Const General: cooperative, healthy appearing and no acute distress [facility] Head: normal to inspection Ears: hearing grossly normal bilaterally, external ears normal, TM's normal bilaterally, EAC's normal, mastoids normal bilaterally, TM abnormal bulging on the right and with fluid behind the TM on the right and other (No R TM erythema) General nose exam: external nose normal Mouth: oral mucosae normal Teeth and gingiva: dentition normal Throat: posterior oropharynx normal Eyes General: appearance normal, both eyes and all related structures Neck Neck: normal visual inspection, full ROM, no lymphadenopathy, no meningeal signs, trachea midline, supple, no anterior neck swelling and No submandibular swelling Resp Effort & Inspection: normal respiratory effort and able to speak in complete sentences Cardio Rate: regular rate Skin General skin exam: no rashes or lesions noted Neuro General: patient alert, patient awake and patient oriented x3 Motor: muscle tone normal throughout Extrem General: normal to inspection and full ROM Psych Appearance: grossly normal Affect: normal affect
[2020-03-15] MEDS: Amoxicillin 500 MG CAP PO (19:29)
== END 2020-03-15 19:30 | disposition home or self-care (01) ==
PROVIDERS: Emergency Provider Physician Assistant; PCP Nurse Practitioner Family
DX: H65.191 Other acute nonsuppurative otitis media, right ear (principal)
CPT/HCPCS: 99283

== ENCOUNTER 2020-03-19 03:09 | Outpatient (CLI) | payer MEDICAID, SELFPAY ==
[2020-03-19 15:37] LABS: Abs Immature Grans 0.01 10^3/uL (0.0-0.06); Absolute Basophil Count 0.03 10^3/uL (0.0-0.2); Absolute Eosinophil Count 0.15 10^3/uL (0.0-0.7); Absolute Lymphocyte Count 2.69 10^3/uL (1.2-3.4); Absolute Monocyte Count 0.35 10^3/uL (0.1-0.8); Absolute Neutrophil Count 1.95 10^3/uL (1.2-6.7); Basophils % 0.6; Eosinophils % 2.9; HCT 34.6 % (36.0-46.0); HGB 11.6 g/dL (11.2-15.7); Immature Grans % 0.2; Lymphocytes % 51.9; MCH 28.5 pg (27.0-33.0); MCHC 33.5 % (32.0-36.0); Monocytes % 6.8; Neutrophils % 37.6; Nucleated RBC 0 %; Platelet Count 211 10^3/uL (130-400); RBC 4.07 10^6/uL (3.93-5.22); RDW 12.3 % (11.7-14.6); RDW-SD 37.4 fL; WBC 5.18 10^3/uL (4.4-10.8)
[2020-03-19 17:01] LABS: ALT 43 U/L (14-59); AST 26 U/L (15-37); Albumin 3.6 g/dL (3.4-5.0); Alkaline Phosphatase 77 U/L (46-116); Anion Gap 6.8 mmol/L (3-11); BUN 14 mg/dL (7-18); Bilirubin, Total 0.5 mg/dL (0.2-1.0); CO2 26.2 mmol/L (21.0-32.0); CREATININE 0.86 mg/dL (0.55-1.02); Calcium 8.8 mg/dL (8.5-10.1); Calculated LDL 101 mg/dL (<100); Chloride 106 mmol/L (98-107); Cholesterol 188 mg/dL (<200); Glucose 95 mg/dL (74-106); HDL Cholesterol 22 mg/dL (40-60); Potassium 3.7 mmol/L (3.5-5.1); Sodium 139 mmol/L (136-145); TSH 4.22 uIU/mL (0.36-3.74); Total Protein 6.8 g/dL (6.4-8.2); Triglyceride 325 mg/dL (<150)
[2020-03-19 17:22] LABS: FREE T4 1.04 ng/dL (0.76-1.46)
== END 2020-03-19 03:29 ==
PROVIDERS: PCP Nurse Practitioner Family; Visit Provider Nurse Practitioner Family
DX: R51.9 Headache, unspecified (principal); H47.10 Unspecified papilledema
CPT/HCPCS: 36415; 80053; 80061; 84439; 84443; 85025

== ENCOUNTER 2020-03-22 07:32 | Emergency (ER) | payer MEDICAID, SELFPAY ==
[2020-03-22 07:41] VITALS: BP 122/73; PULSE 82; RESP 16; TEMP 36.8; O2SAT 96
--- NOTE | 2020-03-22 08:00 | DI.CT_ITS ---
EXAM: CT HEAD WO CLINICAL HISTORY: headache, optic disc edema. TECHNIQUE: Imaging Protocol: Axial computed tomography images with coronal and sagittal reformatted images were created and reviewed COMPARISON: No exams were available for comparison FINDINGS: Ventricles and Extra axial spaces: Normal in size and morphology for the patient's age. Hemorrhage: None. Cerebral parenchyma: Normal. Midline shift: None. Brainstem/Cerebellum: Normal. Calvarium: Normal. Visualized Paranasal sinuses/Mastoids: Clear. Soft Tissues: Unremarkable. IMPRESSION: No acute intracranial process. Findings were discussed with the emergency department on the date of the examination. RADIATION DOSE DELIVERED: 698.84mGy.cm Total DLP DATA REPOSITORY: All CT scans at this facility are submitted to the National Radiology Data Registry (NRDR) Dose Index Registry (DIR) with the [employer] ([employer]). RADIATION OPTIMIZATION: All CT scans at this facility use at least one of these dose optimization te chniques: automated exposure control; mA and/or kV adjustment per patient size (includes targeted exa ms where dose is matched to clinical indication); or iterative reconstruction.
[2020-03-22 08:30] LABS: Bilirubin Negative (Negative); Blood Negative (Negative); Clarity Clear (Clear); Glucose Negative (Negative); Ketones Negative (Negative); Leukocyte Esterase Negative (Negative); Nitrite Negative (Negative); Specific Gravity 1.025 (1.005-1.025); Urobilinogen 0.2 EU/dL (Up TO 0.2); pH 7.5 (5-8)
--- NOTE | 2020-03-22 08:32 | ED.GENADUL_ITS ---
Discharge Plan Disposition Patient Disposition: HOME Condition: Stable Discharge Details Clinical Impression: Headache Primary Care Provider: Cindy Hill ED Provider: Lilian Mendez Home Meds and New Rx's Prescriptions: Continued omeprazole 20 mg capsule,delayed release(DR/EC) 20 mg PO DAILY Qty: 90 RF: 4 albuterol sulfate [ProAir HFA] 90 mcg/actuation HFA aerosol inhaler 2 puff IH PRN PRNRF: 0 (DME) inhaler,assist devices,access device See Dose Instructions .ROUTE .MEDSUPPLY Qty: 1 RF: 0 loratadine 10 MG tablet 10 mg PO PRN PRNRF: 0 fluoxetine 20 mg capsule 20 mg PO DAILY Qty: 90 RF: 4 Discharge Instructions Instructions: General Headache (ED) Additional Instructions: Please return immediately to the emergency department if you develop any new or worsening symptoms, if your condition does not improve as expected, or if you become otherwise concerned. It is extremely important that you call soon as possible to make an appointment to be seen in follow-up for this visit by your primary care doctor. It is also extremely important that you attend your scheduled appointment with neurology as we discussed. Referrals: Cindy Hill NP [Primary Care Provider] - Aviva Naik MD [ [facility] STAFF PHYSICIAN] - Discharge Data Discharge Date/Time-TO BE ENTERED AT DEPARTURE: 03/22/20 12:59 Medical Decision Making Beth Lopez is a 24-year-old woman who presented to the emergency department with intermittent headache behind her eyes over the past month accompanied by nausea and in the setting of papilledema reported by optometry on 03/18. On exam patient is well and nontoxic-appearing. Neurological exam is nonfocal. Concern for idiopathic intracranial hypertension versus other. Doubt subarachnoid hemorrhage, meningitis pathology, central venous thrombosis. Exam/history is not consistent with sepsis, cerebrovascular accident. Plan for brain imaging, lumbar puncture. Labs from 3 days ago reviewed. Unable to obtain MRI in timely fashion after discussion with radiology, plan for CT head. I did discuss the patient with Dr. Naik as she is scheduled to see the patient in outpatient setting in a week. She requested MRI brain without contrast when available, LP with cell count/glucose/protein/culture, no other additional CSF studies at this time. Patient declines pain medication at this time. CT head negative per radiology. Patient with capacity for informed decision making, patient consented to lumbar puncture after risks/benefits discussed. LP performed, opening pressure after 2 cc CSF removed in the lateral decubitus position with legs extended was 0. Extremely slow CSF flow rate. Please see procedure note. CSF studies sent. Patient reports headaches somewhat improved. Notified that MRI is available earlier than anticipated. Patient to go to MRI. LP shows normal glucose, normal protein, no WBCs, 15 RBCs and few for. Likely secondary to traumatic tap. I discussed these results with Dr. Naik of neurology, who recommended no further intervention other is an MRI is planned. If MRI negative, plan for patient to follow-up with scheduled appointment with neurology in 1 week. Patient reports headache currently same as when she arrived, patient okay with pain meds at this time. Plan for Compazine and Benadryl. MRI negative per radiology. Patient reporting resolution of her headache after meds. I had a lengthy discussion with Patient regarding return to emergency department precautions, home care, and importance of outpatient follow-up. Pt verbalizes understanding of the plan and is amenable. Patient discharged to home with clear plan for outpatient follow-up. All questions were answered. Disposition decision was made weighing the risks and benefits of hospitalization versus outpatient treatment, the risk for further decompensation, and the patient's wishes. Medical Records Medical records reviewed: Yes I reviewed the patient's medical records. Imaging Data Radiologic Study: Attestation: I personally reviewed and interpreted this imaging study as follows: Radiologist's impression: EXAM: MR BRAIN ORBIT FACE NECK WO/W CLINICAL HISTORY: headache, optic disc edema TECHNIQUE: Multiplanar multisequence MRI of the brain was performed. CONTRAST MATERIAL: IV Contrast: 20 ML of Dotarem contrast administered. COMPARISON: No exams were available for comparison FINDINGS: BRAIN: VENTRICLES AND EXTRA AXIAL SPACES: Normal in size and morphology for the patient's age. HEMORRHAGE: None. CEREBRAL PARENCHYMA: No focus of restricted diffusion to suggest acute infarct. No space-occupying lesion identified. MIDLINE SHIFT: None. BRAINSTEM/CEREBELLUM: Normal. CALVARIUM: Normal. ENHANCEMENT: No suspicious enhancement identified. VISUALIZED PARANASAL SINUSES/MASTOIDS: Mucous retention cysts or polyps are seen in the right maxillary sinus. The sinuses are otherwise clear. [place]: Normal flow void. PITUITARY GLAND: Unremarkable. OTHER FINDINGS: ORBITS: ORBITS: The anterior and posterior chambers of the globes are intact. The retrobulbar fat is unremarkable. Extraocular muscles are unremarkable. OPTIC NERVES: The intracranial and extracranial portions of the optic nerves are within normal limits. Optic chiasm is within normal limits. No MRI evidence of optic neuritis identified. SOFT TISSUES: Soft tissues are unremarkable. OTHER FINDINGS: None. IMPRESSION: Unremarkable MRI of the brain and orbits. EXAM: CT HEAD WO CLINICAL HISTORY: headache, optic disc edema. TECHNIQUE: Imaging Protocol: Axial computed tomography images with coronal and sagittal reformatted images were created and reviewed COMPARISON: No exams were available for comparison FINDINGS: Ventricles and Extra axial spaces: Normal in size and morphology for the patient's age. Hemorrhage: None. Cerebral parenchyma: Normal. Midline shift: None. Brainstem/Cerebellum: Normal. Calvarium: Normal. Visualized Paranasal sinuses/Mastoids: Clear. Soft Tissues: Unremarkable. IMPRESSION: No acute intracranial process. Lab Data Lab results reviewed: Yes I reviewed the patient's lab results. Labs: 03/22/20 09:26 Cerebrospinal Fluid Body Fluid Culture - Pending 03/22/20 09:26 Cerebrospinal Fluid Gram Stain - Final Laboratory Tests Range/Units 03/22/20 03/22/20 03/22/20 08:15 09:26 09:26 Xanthochromia Urine Color (Yellow) Yellow Urine Clarity (Clear) Clear Urine pH (5-8) 7.5 Ur Specific [place] (1.005-1.025) 1.025 Urine Protein (Negative) mg/dL Negative Urine Ketones (Negative) mg/dL Negative Urine Blood (Negative) Negative Urine Nitrite (Negative) Negative Urine Bilirubin (Negative) Negative Urine Urobilinogen (Up TO 0.2) EU/dL 0.2 Ur Leukocyte Esterase (Negative) Negative Urine Glucose (Negative) mg/dL Negative CSF Tube Number CSF Color CSF Clarity CSF WBC (0-5) /uL CSF RBC (0-5) /mm3 CSF RBC (1) (0-5) /mm3 CSF Diff Comment CSF Glucose (40-70) mg/dL 63 CSF Total Protein (15-45) mg/dL 25 Range/Units 03/22/20 09:26 Xanthochromia Absent Urine Color (Yellow) Urine Clarity (Clear) Urine pH (5-8) Ur Specific [place] (1.005-1.025) Urine Protein (Negative) mg/dL Urine Ketones (Negative) mg/dL Urine Blood (Negative) Urine Nitrite (Negative) Urine Bilirubin (Negative) Urine Urobilinogen (Up TO 0.2) EU/dL Ur Leukocyte Esterase (Negative) Urine Glucose (Negative) mg/dL CSF Tube Number 4 CSF Color Colorless CSF Clarity Clear CSF WBC (0-5) /uL 1 CSF RBC (0-5) /mm3 15 H CSF RBC (1) (0-5) /mm3 675 H CSF Diff Comment CSF Glucose (40-70) mg/dL CSF Total Protein (15-45) mg/dL HPI General Mode of arrival: ambulatory . Date/Time Provider Initiated Documentation: 03/22/20 07:47 . Limitations to Documentation: no limitations . Information obtained by: patient, RN notes reviewed and old records reviewed . HPI Narrative: Beth Lopez is a 24-year-old woman with history of GERD, asthma, depression presenting to the emergency department with headaches. Patient reports that over the past month she has had daily headaches. Patient reports that headaches have been a pressure sensation behind her eyes bilaterally. Patient states that on 03/18 she was seen by an remote sensing technician at [facility] because she was concerned that her headaches were due to needing reading glasses. She was told at that visit that she had optic disc edema and was referred to her primary care doctor. Her primary care doctor ordered blood work which was performed 3 days ago, scheduled an appointment with neurology and an MRI for 03/29. Patient reports that her pain this morning was worse than usual, which is why she came to the emergency department. Patient reports the pain is same in location and quality, but worse in severity. She denies any other pain. She reports that she is nauseous but denies vomiting. She denies visual changes, fever, diarrhea, shortness of breath, cough, numbness, weakness, rash. Patient reports that headaches have been manageable at home with Tylenol but they are persistent has been concerning for her. She states that she has been going about her daily activities as usual. She states that she has been eating and drinking as usual. No recent medication changes. Patient reports rare alcohol use, no tobacco use, no recreational drug use. Related Data Home Medications Medication Instructions Recorded Confirmed loratadine 10 mg PO PRN PRN 02/15/16 03/22/20 albuterol sulfate 90 mcg/actuation 2 puff IH PRN PRN 12/11/17 03/22/20 aerosol inhaler inhaler,assist devices,access #1 each 12/11/17 03/18/20 omeprazole 20 mg capsule,delayed 20 mg PO DAILY #90 cap 04/30/19 03/22/20 release fluoxetine 20 mg capsule 20 mg PO DAILY #90 tab-cap 01/08/20 03/22/20 Previous Rx's Medication Instructions Recorded omeprazole 20 mg capsule,delayed 20 mg PO DAILY #90 cap 04/30/19 release fluoxetine 20 mg capsule 20 mg PO DAILY #90 tab-cap 01/08/20 Allergies Allergy/AdvReac Type Severity Reaction Status Date / Time erythromycin ethylsuccinate Allergy Verified 03/22/20 07:49 [From Pediazole] General Stated Complaint: Headache LORENE: 3 Review of Systems Narrative: Constitutional: denies fevers Eyes: denies eye pain, visual changes, reports pain behind eyes ENT: denies ear pain, dental pain, sore throat Cardiovascular: denies chest pain Respiratory: denies SOB, cough GI: denies abdominal pain, vomiting, diarrhea : denies flank pain MSK: denies back pain, neck pain, arthralgias, myalgias Skin: denies rash Neuro: denies numbness, weakness, reports headache PFSH Medical History Allergic rhinitis DUB (dysfunctional uterine bleeding) GERD (gastroesophageal reflux disease) Headache behind the eyes Major depressive disorder Mild intermittent asthma Mostly exercise induced Optic disc edema Family History Mother Type 2 diabetes mellitus Father No problems noted. Sister Depression ADHD Sister ADHD Sister ADHD Son No problems noted. Maternal Grandfather Heart disease Maternal Grandmother Type 2 diabetes mellitus Maternal Aunt Factor 5 Leiden mutation, heterozygous Paternal Grandfather Asthma Paternal Grandmother Asthma Social History Smoking/Tobacco Use Status: Never Smoking risk assessment performed?: Yes Alcohol Intake: never Drug use: Never Substance use type: does not use Pets and animals: Yes Pets and animals: dog(s) Frequency: daily Special zheng needs: No Seatbelt use: always Helmet use: Yes Do you feel safe at home: Yes Do you feel safe in your relationship?: Yes Female Reproductive History Menstrual control method: none History History 1 Para 0 Hx # Term Pregnancies 0 Multiple births 0 Hx # Pregnancies 0 Ectopic pregnancies 0 AB induced 0 Hx Number of Living Children 1 AB spontaneous 0 Past Pregnancies Del. Date GA/Weeks # Outcome Route Wgt Sex Labor Lgth Anesthes ia Location [facility] 08/28/18 39 No Successful vaginal 3486.991 g Male 8 hrs. 27 min. Shayleeramez Beebe,PILO Delivery Date: 08/28/18 premature rupture of membranes induction- reason/premature rupture of membranes Bhumi San LPN Exam Narrative Exam Narrative: Constitutional: well and [id number], pleasant, conversing normally HENT: head atraumatic/normocephalic/normal inspection, mucous membranes moist Eyes: conjunctiva normal, sclera normal, pupils 3mm b/l, PERRLA, EOMI and painless without nystagmus Neck: no stridor, trachea midline, full painless range of motion, negative Kernig/Brudzinski sign, no posterior neck tenderness to palpation Resp: normal work of breathing, speaking in full sentences Cardio: normal rate, normal rhythm Back: normal inspection, no rash Skin: warm, dry, normal color, no rash Neuro: alert, not altered, cranial nerves II through XII intact, motor 5 out of 5 throughout, normal tone Ext: no edema Psych: normal mood, normal affect, normal behavior Course Vital Signs Vital signs: Vital Signs Temperature 36.8 C 03/22/20 07:41 Pulse 82 03/22/20 07:41 Respiratory Rate 16 03/22/20 07:41 Blood Pressure 122/73 03/22/20 07:41 Pulse Oximetry 96 03/22/20 07:41 Temperature 36.8 C 03/22/20 07:41 Temperature Source Temporal Artery Scan 03/22/20 07:41 Pulse 82 03/22/20 07:41 Respiratory Rate 16 03/22/20 07:41 Respiratory Effort Non-Labored 03/22/20 07:47 Blood Pressure 122/73 03/22/20 07:41 Blood Pressure Position Sitting 03/22/20 07:41 Pulse Oximetry 96 03/22/20 07:41 Oxygen Delivery Method Room Air 03/22/20 07:41 Oxygen Flow Rate 0 03/22/20 07:41 Pain Level 10 03/22/20 07:50 Lab/Test Results Lab/Test Results: Laboratory Tests Range/Units 03/22/20 08:15 Urine Color (Yellow) Yellow Urine Clarity (Clear) Clear Urine pH (5-8) 7.5 Ur Specific [place] (1.005-1.025) 1.025 Urine Protein (Negative) mg/dL Negative Urine Ketones (Negative) mg/dL Negative Urine Blood (Negative) Negative Urine Nitrite (Negative) Negative Urine Bilirubin (Negative) Negative Urine Urobilinogen (Up TO 0.2) EU/dL 0.2 Ur Leukocyte Esterase (Negative) Negative Urine Glucose (Negative) mg/dL Negative POC- Test(urine) Negative Procedures Lumbar Puncture Time Out Performed: Yes Patient Position: other (Upright transitioned to left lateral decubitus) Skin Prep: Povidone-Iodine 1% Local Anesthetic: Lidocaine 1% Amount of anesthesia used (mL): 6 Spinal Needle Gauge: 22G Interspace Used: L3-L4 Opening Pressure (cmH20): 0 Fluid Initially Obtained: clear Complications: none Additional Comments: Due to need for opening pressure, procedure was first attempted and lateral decubitus position. First attempt unsuccessful, secondary to body habitus, poor landmarks. Patient was repositioned to sitting upright with plan to transition to lateral decubitus position after needle in place. Extremely slow CSF flow rate in seated position. Due to concern that repositioning would dislodge needle, 2 cc of fluid were collected in the sitting position prior to pressure measurement. Patient was then repositioned to lateral decubitus position. Needle remained in good position. Pressure at that time registered 0, continued extremely slow CSF flow rate. 2 additional ccs of CSF obtained. There were no complications. Patient tolerated procedure without issue.
[2020-03-22] MEDS: Ondansetron 4 MG/2 ML VIAL IVP (09:07)
[2020-03-22] MEDS: Lidocaine 1% Pres-Free 5 ML VIAL (09:40)
[2020-03-22 10:39] LABS: Glucose (CSF) 63 mg/dL (40-70); Total Protein (CSF) 25 mg/dL (15-45)
[2020-03-22] MEDS: Normal Saline Flush 10 ML SYR IVP (11:10)
[2020-03-22] MEDS: Gadoterate meglumine 20 ML VIAL IVP (11:11)
[2020-03-22 11:16] LABS: Clarity Clear; RBC 15 /mm3 (0-5); Tube # 4; WBC 1 /uL (0-5); Xanthochromia Absent
[2020-03-22 11:18] LABS: RBC Tube#1 CSF 675 /mm3 (0-5)
--- NOTE | 2020-03-22 11:32 | DI.MRI_ITS ---
EXAM: MR BRAIN ORBIT FACE NECK WO/W CLINICAL HISTORY: headache, optic disc edema TECHNIQUE: Multiplanar multisequence MRI of the brain was performed. CONTRAST MATERIAL: IV Contrast: 20 ML of Dotarem contrast administered. COMPARISON: No exams were available for comparison FINDINGS: BRAIN: VENTRICLES AND EXTRA AXIAL SPACES: Normal in size and morphology for the patient's age. HEMORRHAGE: None. CEREBRAL PARENCHYMA: No focus of restricted diffusion to suggest acute infarct. No space-occupying le evonne identified. MIDLINE SHIFT: None. BRAINSTEM/CEREBELLUM: Normal. CALVARIUM: Normal. ENHANCEMENT: No suspicious enhancement identified. VISUALIZED PARANASAL SINUSES/MASTOIDS: Mucous retention cysts or polyps are seen in the right maxilla ry sinus. The sinuses are otherwise clear. [place]: Normal flow void. PITUITARY GLAND: Unremarkable. OTHER FINDINGS: ORBITS: ORBITS: The anterior and posterior chambers of the globes are intact. The retrobulbar fat is unremark able. Extraocular muscles are unremarkable. OPTIC NERVES: The intracranial and extracranial portions of the optic nerves are within normal limits . Optic chiasm is within normal limits. No MRI evidence of optic neuritis identified. SOFT TISSUES: Soft tissues are unremarkable. OTHER FINDINGS: None. IMPRESSION: Unremarkable MRI of the brain and orbits. Findings were discussed with the emergency department on the date of the examination. DATA REPOSITORY:
[2020-03-22] MEDS: Normal Saline 1,000 ML 1000 ML IV (11:38)
[2020-03-22 11:49] VITALS: BP 111/60; PULSE 75; RESP 17; TEMP 36.7; O2SAT 99
[2020-03-22] MEDS: diphenhydrAMINE 50 MG/ML VIAL 25 MG IVP (12:16)
[2020-03-22] MEDS: Prochlorperazine 10 MG/2 ML VIAL IVP (12:17)
[2020-03-22] MEDS: Normal Saline 50 ML 400 ML (12:18)
[2020-03-22 12:57] VITALS: BP 116/74; PULSE 87; RESP 17; TEMP 36.7; O2SAT 99
== END 2020-03-22 12:59 | disposition home or self-care (01) ==
PROVIDERS: Emergency Provider Student in an Organized Health Care Education/Training Program; PCP Nurse Practitioner Family
DX: R10.0 Acute abdomen (principal); R51.9 Headache, unspecified; H47.11 Papilledema associated with increased intracranial pressure
CPT/HCPCS: 62270; 70553; 81025; 82945; 89050; 89051; 96361; 96374; 96375; 99284; 70450; 70543; 81003; 84157; 87070; 87205; 99285; J0780; J1200; J2405

== ENCOUNTER 2020-08-16 20:51 | Outpatient (REF) | payer MEDICAID, SELFPAY ==
[2020-08-16 21:33] LABS: HCG Quant, Pregnancy 162 mIU/mL (1-3)
== END 2020-08-16 20:52 | disposition home or self-care (01) ==
LOC: LBN 20:51
PROVIDERS: PCP Nurse Practitioner Family; Visit Provider Nurse Practitioner Family
DX: Z32.01 Encounter for pregnancy test, result positive (principal)
CPT/HCPCS: 84702

== ENCOUNTER 2020-10-05 04:00 | Outpatient (CLI) | payer MEDICAID, SELFPAY ==
[2020-10-05 15:24] LABS: Kit/Specimen SENT
[2020-10-05 15:29] LABS: Glucose,1 Hr (Glucola) 81 mg/dL (80-140)
[2020-10-05 15:46] LABS: Abs Immature Grans 0.04 10^3/uL (0.0-0.06); Absolute Basophil Count 0.03 10^3/uL (0.0-0.2); Absolute Lymphocyte Count 1.81 10^3/uL (1.2-3.4); Absolute Monocyte Count 0.54 10^3/uL (0.1-0.8); Absolute Neutrophil Count 6.93 10^3/uL (1.2-6.7); Basophils % 0.3; Eosinophils % 2.1; HCT 38.2 % (36.0-46.0); HGB 12.4 g/dL (11.2-15.7); Immature Grans % 0.4; MCH 28.5 pg (27.0-33.0); MCHC 32.5 % (32.0-36.0); MCV 87.8 fL (80-95); Monocytes % 5.7; Neutrophils % 72.5; Nucleated RBC 0 %; Platelet Count 307 10^3/uL (130-400); RBC 4.35 10^6/uL (3.93-5.22); RDW 12.2 % (11.7-14.6); RDW-SD 39.2 fL; WBC 9.55 10^3/uL (4.4-10.8)
[2020-10-05 16:47] LABS: TSH (W/Ref FT4) 2.88 uIU/mL (0.36-3.74)
[2020-10-06 11:14] LABS: Varicella IgG Antibody Positive (See Note)
[2020-10-06 11:23] LABS: Rubella IgG Ab (UVM) Positive (See Note)
[2020-10-06 12:03] LABS: Hepatitis B Surface Ag Negative (Negative)
[2020-10-06 12:28] LABS: Hepatitis C Ab w Rflx HCV PCR Negative (Negative)
[2020-10-06 12:34] LABS: HIV-1/2 Ag & Ab Screen Negative (Negative)
[2020-10-07 11:14] LABS: Syphilis Total Ab w/Reflex Nonreactive (Nonreactive)
== END 2020-10-05 04:01 | disposition home or self-care (01) ==
LOC: LBO 04:00
PROVIDERS: PCP Nurse Practitioner Family; Visit Provider Advanced Practice Midwife
DX: O99.341 Other mental disorders complicating pregnancy, first trimester (principal); Z11.4 Encounter for screening for human immunodeficiency virus [HIV]; Z11.59 Encounter for screening for other viral diseases; Z01.84 Encounter for antibody response examination; F32.9 Major depressive disorder, single episode, unspecified; O99.211 Obesity complicating pregnancy, first trimester; Z68.41 Body mass index [BMI] 40.0-44.9, adult; R11.0 Nausea
CPT/HCPCS: 36415; 82950; 86787; 86803; 86850; 86900; 86901; 87340; 87389; 84443; 85025; 86762; 86780

== ENCOUNTER 2020-10-05 16:38 | Outpatient (REF) | payer MEDICAID, SELFPAY ==
--- NOTE | 2020-10-05 14:00 | PAPFT_PTH ---
PATIENT: Beth Lopez LOC: [facility] U#:[id number] AGE/SX: 24/F ROOM: RE10/05/[address]: Shaylee Marcial CNM : 1995 BED: DIS: 10/05/2020 SPEC #: [id number] RECD: 10/06/20 08:59 STATUS: APRIL REQ #: [id number] JAMISON: 10/05/20 14:[address]: Shaylee Marcial DEPT: [facility] Cytology RECD BY: Lizzie Lim ENTERED: 10/06/20 08:59 SP TYPE: PAPFT ESVIN DR: WENDI Nelson Tissues: 1 - CX/ENDOCX FOR PAP SMEARS Procedures: PAP THIN PREP/UVM Screening Comments: [id number]
[2020-10-05 17:54] LABS: *AMPHETAMINES SCREEN URINE Negative (Negative); *BARBITURATES SCREEN URINE Negative (Negative); *BENZODIAZEPINES SCREEN URINE Negative (Negative); Cannabinoids THC Negative (Negative); Cocaine Screen,Urine Negative (Negative); METHADONE URINE SCREEN Negative (Negative); OPIATES URINE SCREEN Negative (Negative)
[2020-10-05 17:59] LABS: Tricyclic Antidepressants Negative (Negative)
[2020-10-07 15:12] LABS: Chlamydia Result Negative (Negative); GC Result Negative (Negative)
[2020-10-09 11:34] LABS: Buprenorphine Negative ng/mL (Cutoff: 5.0); Norbuprenorphine Negative ng/mL (Cutoff: 2.5)
== END 2020-10-05 16:39 | disposition home or self-care (01) ==
LOC: LBN 16:38
PROVIDERS: PCP Nurse Practitioner Family; Visit Provider Advanced Practice Midwife
DX: Z34.91 Encounter for supervision of normal pregnancy, unspecified, first trimester (principal); Z11.3 Encounter for screening for infections with a predominantly sexual mode of transmission; Z12.4 Encounter for screening for malignant neoplasm of cervix
CPT/HCPCS: 80307; 87491; 87591; 88142; 87086

== ENCOUNTER 2020-11-22 00:18 | Outpatient (CLI) | payer MEDICAID, SELFPAY ==
--- NOTE | 2020-11-22 09:00 | DI.US_ITS ---
Exam(s) US OB 2-3 TRIMESTER EXAM: US OB 2-3 TRIMESTER CLINICAL HISTORY: , obesity, Z32.01, E66.9. TECHNIQUE: Transabdominal obstetrical ultrasound was performed. COMPARISON: US US OB URSULA weight from 08/06/2018 FINDINGS: There is a single viable intrauterine gestation with cardiac activity identified-145 bpm. Amniotic fluid: There is a normal amount of amniotic fluid. Placental location: The placenta is anterior grade 1,with no evidence of placenta previa.The distance from the tip of the placenta to the internal cervical os is 5.4 cm on today's study. ANATOMY: A 3 vessel umbilical cord is seen. A four-chamber cardiac view was obtained. Right and left ventricular outflow tracts were imaged. There are no obvious abnormalities of the spinal column evident. There is no obvious abnormal ity of the anterior abdominal wall. stomach and urinary bladder are identified and there is no evidence of hydronephrosis. No abnormalities of the upper lip region are identified. No evidence of choroid plexus cysts i n the brain. Dating parameters place this at approximately 18 weeks and 3 days gestational age. BPD measures 18 weeks and 1 day HC measures 18 weeks and 4 days AC measures 18 weeks and 3 days FL measures 18 weeks and 4 days Estimated weight is 243 gm-0 pounds 9 ounces Fetus is at the 59th percentile on the Hadlock scale. IMPRESSION:: Single viable intrauterine gestation which is approximately 18 weeks and 3 days gestati onal age, implying an WILLIAM of April 22, 2021. There are no obvious anomalies evident on today's study. The placenta is anterior with no evidence of placenta previa. There is a normal amount of amniotic fluid. DATA REPOSITORY:
== END 2020-11-22 00:38 ==
PROVIDERS: PCP Nurse Practitioner Family; Visit Provider Advanced Practice Midwife
DX: E66.9 Obesity, unspecified (principal); O99.212 Obesity complicating pregnancy, second trimester; Z3A.18 18 weeks gestation of pregnancy
CPT/HCPCS: 76805

== ENCOUNTER 2021-02-04 03:45 | Outpatient (CLI) | payer MEDICAID, SELFPAY ==
[2021-02-04 15:20] LABS: HCT 34.5 % (36.0-46.0); HGB 11.3 g/dL (11.2-15.7); MCH 29.1 pg (27.0-33.0); MCHC 32.8 % (32.0-36.0); MCV 88.9 fL (80-95); MPV 9.6 fL (8.0-11.0); Platelet Count 268 10^3/uL (130-400); RBC 3.88 10^6/uL (3.93-5.22); RDW 12.4 % (11.7-14.6); WBC 12.88 10^3/uL (4.4-10.8)
[2021-02-04 15:30] LABS: Glucose,1 Hr (Glucola) 108 mg/dL (80-140)
== END 2021-02-04 03:46 | disposition home or self-care (01) ==
LOC: LBO 03:45
PROVIDERS: PCP Nurse Practitioner Family; Visit Provider Advanced Practice Midwife
DX: Z34.93 Encounter for supervision of normal pregnancy, unspecified, third trimester (principal)
CPT/HCPCS: 36415; 82950; 85027

== ENCOUNTER 2021-03-22 20:15 | Outpatient (REF) | payer MEDICAID, SELFPAY ==
[2021-03-22 21:36] LABS: *AMPHETAMINES SCREEN URINE Negative (Negative); *BARBITURATES SCREEN URINE Negative (Negative); *BENZODIAZEPINES SCREEN URINE Negative (Negative); Cannabinoids THC Negative (Negative); Cocaine Screen,Urine Negative (Negative); METHADONE URINE SCREEN Negative (Negative); OPIATES URINE SCREEN Negative (Negative)
[2021-03-22 21:39] LABS: Tricyclic Antidepressants Negative (Negative)
[2021-04-05 14:51] LABS: Buprenorphine Negative ng/mL (Cutoff: 5.0)
== END 2021-03-22 20:16 | disposition home or self-care (01) ==
LOC: LBN 20:15
PROVIDERS: PCP Nurse Practitioner Family; Visit Provider Advanced Practice Midwife
DX: Z3A.35 35 weeks gestation of pregnancy (principal); Z34.93 Encounter for supervision of normal pregnancy, unspecified, third trimester
CPT/HCPCS: 80307; 87081

== ENCOUNTER 2021-03-31 02:50 | Outpatient (RCR) | payer MEDICAID, SELFPAY ==
[2021-03-24] MEDS: Normal Saline Flush 10 ML SYR IVP (10:07)
[2021-03-24] MEDS: IRON SUCROSE COMPLEX 200 MG in Normal Saline 100 ML 440 MG IVPB (10:22)
[2021-03-31 10:23] LABS: HCT 36.6 % (36.0-46.0); HGB 11.9 g/dL (11.2-15.7)
[2021-03-31] MEDS: Normal Saline Flush 10 ML SYR IVP (10:34)
== END 2021-04-01 23:59 | disposition home or self-care (01) ==
LOC: INF 02:50
PROVIDERS: PCP Nurse Practitioner Family; Visit Provider Advanced Practice Midwife
DX: O99.013 Anemia complicating pregnancy, third trimester (principal); D64.9 Anemia, unspecified
CPT/HCPCS: 36415; 96365; 85014; 85018; J1756

== ENCOUNTER 2021-04-06 15:49 | Outpatient (CLI) | payer MEDICAID, SELFPAY ==
[2021-04-06 15:58] VITALS: BP 132/80; PULSE 97
[2021-04-06 16:28] VITALS: BP 142/98
[2021-04-06 16:37] VITALS: BP 132/80
[2021-04-06 17:11] LABS: COMMENT (LAB VIEW ONLY) 58.95 mg/dL; PROTEIN 11.8 mg/dL
--- NOTE | 2021-04-06 17:23 | W.OBNST ---
Date of service: 04/06/21 Time of Service: 14:45 NST Evaluation Reason for NST Reasons for Nonstress Test: OTHER, SEE COMMENT Reason for NST Other: Elevated BP in office Gestational Age Gestational Age in Weeks and Days: 37 Weeks and 4Days Test and Monitor Explained Test/Monitor Explained: Test Explained, Monitor Explained and Patient Verbalized Understanding Vital Signs Blood Pressure: 132/80 Pulse: 97 NST Information Date on Monitor: 04/06/21 Time on Monitor: 15:58 Date off Monitor: 04/06/21 Time off Monitor: 16:45 Total Time on Monitor: 47 NST Interventions: PO Hydration Contraction Frequency: occasional NST Evaluation Patient States Movement: Present FHR Baseline: 145 Variability: Moderate 6-25 bpm Accelerations: 15x15 Decelerations: None NST Results: Reactive Note NST Note Note: Reactive NST due to mild BP elevation in office and 100 of protein on urine dip in office today. Denies CASTELLANOS, visual disturbance or epigastric pain. Reports active baby. She denies swelling in leg, feet or face. Denies contractions. NST and pro/creat ratio done per consult with Dr. Cortez. Pro/ Creat ratio 0.2 and BP 130/82. I have reviewed pre-eclampsia warning signs with patient and she denies questions. Will RTO 04/11 for visit and NST that day. NST Reviewed and Verified by: Shaylee Marcial
[2021-04-06 17:25] VITALS: BP 132/80; PULSE 97
== END 2021-04-07 12:08 | disposition home or self-care (01) | DRG 833 ==
LOC: BCD 15:49
PROVIDERS: PCP Nurse Practitioner Family; Visit Provider Advanced Practice Midwife
DX: O26.893 Other specified pregnancy related conditions, third trimester (principal); R03.0 Elevated blood-pressure reading, without diagnosis of hypertension; Z3A.37 37 weeks gestation of pregnancy
CPT/HCPCS: 59025; 82565; 84156

== ENCOUNTER 2021-04-11 07:47 | Outpatient (CLI) | payer MEDICAID, SELFPAY ==
[2021-04-11 14:28] VITALS: BP 119/77; PULSE 116; TEMP 36.6
[2021-04-11 14:40] VITALS: BP 119/77; PULSE 116
[2021-04-11 14:41] VITALS: BP 119/77; PULSE 118; RESP 16; TEMP 36.6; O2SAT 97
[2021-04-11 14:50] LABS: PROTEIN 99.8 mg/dL
--- NOTE | 2021-04-11 15:25 | W.OBNST ---
Date of service: 04/11/21 Time of Service: 14:55 NST Evaluation Reason for NST Reasons for Nonstress Test: GESTATIONAL HYPERTENSION Gestational Age Gestational Age in Weeks and Days: 38 Weeks and 2Days Test and Monitor Explained Test/Monitor Explained: Test Explained, Monitor Explained and Patient Verbalized Understanding Vital Signs Blood Pressure: 119/77 Pulse: 116 Temperature: 97.9 F NST Information Date on Monitor: 04/11/21 Time on Monitor: 14:25 Date off Monitor: 04/11/21 Time off Monitor: 15:24 Total Time on Monitor: 59 NST Interventions: PO Hydration and Notify Provider Contraction Frequency: 0 NST Evaluation Patient States Movement: Present FHR Baseline: 150 Variability: Moderate 6-25 bpm Accelerations: 15x15 Decelerations: None NST Results: Reactive Note NST Note Note: NST done today due to elevated BP in office last week and pro/creat ratio of 0.20 Feeling well today. No complaint of labor, ROM, vaginal bleeding or pre-eclampsia. NST is reactive and reassuring. Repeat pro/creat ratio done today pending at time of this note. BP 119/77. NST Reviewed and Verified by: Shaylee Marcial
[2021-04-11 15:27] VITALS: BP 119/77; PULSE 116; TEMP 36.6
[2021-04-11 15:54] LABS: Prot/Crea Ur Ratio 0.21
== END 2021-04-11 16:00 | disposition home or self-care (01) ==
LOC: BCD 07:49 → OBS 14:21
PROVIDERS: PCP Nurse Practitioner Family; Visit Provider Advanced Practice Midwife
DX: O13.3 Gestational [pregnancy-induced] hypertension without significant proteinuria, third trimester (principal); Z3A.38 38 weeks gestation of pregnancy
CPT/HCPCS: 59025; 82565; 84156

== ENCOUNTER 2021-04-14 07:11 | Outpatient (CLI) | payer MEDICAID, SELFPAY ==
[2021-04-14 09:55] VITALS: BP 124/80; PULSE 98; TEMP 36.6
[2021-04-14 10:27] VITALS: BP 124/80; PULSE 98
[2021-04-14 10:51] VITALS: BP 123/78; PULSE 103
--- NOTE | 2021-04-14 11:23 | W.OBNST ---
Date of service: 04/14/21 Time of Service: 11:23 NST Evaluation Reason for NST Reasons for Nonstress Test: GESTATIONAL HYPERTENSION Gestational Age Gestational Age in Weeks and Days: 38 Weeks and 5Days Test and Monitor Explained Test/Monitor Explained: Test Explained, Monitor Explained and Patient Verbalized Understanding Vital Signs Blood Pressure: 124/80 Pulse: 98 Temperature: 97.9 F NST Information Date on Monitor: 04/14/21 Time on Monitor: 10:00 Date off Monitor: 04/14/21 Time off Monitor: 10:56 Total Time on Monitor: 56 NST Interventions: PO Hydration and Reposition Patient NST Evaluation Patient States Movement: Present FHR Baseline: 140 Variability: Moderate 6-25 bpm Accelerations: 15x15 Decelerations: None NST Results: Reactive Note NST Note Note: Beth noticed michael swelling in her hands last evening . Her friend who is an EMT took her BP and it was 130s/80s. She was encouraged to come in for BP check today. No edema noted. Signs of preeclampsia reviewed, RTO 4 days for visit. NST Reviewed and Verified by: Shaylee Vallecillo
[2021-04-14 11:25] VITALS: BP 124/80; PULSE 98; TEMP 36.6
== END 2021-04-14 11:06 | disposition home or self-care (01) ==
LOC: BCD 07:15 → OBS 09:53
PROVIDERS: PCP Nurse Practitioner Family; Visit Provider Advanced Practice Midwife
DX: O13.3 Gestational [pregnancy-induced] hypertension without significant proteinuria, third trimester (principal); Z3A.38 38 weeks gestation of pregnancy
CPT/HCPCS: 59025

== ENCOUNTER 2021-04-22 05:57 | Inpatient (IN) | payer MEDICAID, SELFPAY ==
[2021-04-22] VITALS (22 sets, daily range): BP systolic 121–144; BP diastolic 74–92; PULSE 90–117; RESP 14–20; TEMP 36.4–36.8; O2SAT 97–99
--- NOTE | 2021-04-22 06:28 | W.PM.OBHPL1 ---
Date of service: 04/22/21 Time of Service: 06:28 Assessment and Plan Assessment and plan (1) Obesity: Status: Chronic Qualifiers: Obesity type: due to excess calories Obesity classification: adult class 3 (BMI >= 40) Serious obesity comorbidity presence: without serious comorbidity Body mass index: BMI 45.0-49.9 Qualified Code(s): E66.01 - Morbid (severe) obesity due to excess calories; Z68.42 - Body mass index [BMI] 45.0-49.9, adult (2) Premature rupture of membranes (PROM) affecting second : Status: Acute Assessment and plan: A: 25 yo @ 39+6 wks PROM clear confirmed, since 0500 Not in labor, category 1 tracing, Pollard score is 4 GBS negative, obesity with BMI @ 45 Low risk for SD and PPH Proven to 7'11 Mild anemia during treated with iron infusions Pt plans unmedicated labor and P: Admit to BC, CBC, T&S, COVID swab Will review options w/pt for IOL d/t PROM with unfavorable cvx Recommend misoprostel for cervical ripening initially Anticipate later today (3) with 39 completed weeks gestation: Status: Acute OB-HPI Labor/Delivery History of Present Illness Reason for Visit: R/O SROM at Term Chief Complaint: Suspected Rupture of Membranes , Associated Signs and Symptoms of Suspected ROM: water broke at 0500, lots of clear fluid with white flecks in it, still gushing. WILLIAM Calculator Estimated Delivery Date Method Current WG Current Estimate 04/23/21 Ultrasound #1 39w 6d Other Estimates 04/16/21 LMP (Certain) 40w 6d History of Present Expected Delivery Route/Plan - CNM FOB/boyfriend - Darron Call (2nd child together) [place] Desires water GBS negative Specific Issues/Plan 1. Depression, Rx managed by PCP, switching from Prozac to Wellbutrin, doing well on Wellbutrin 2. Anemia previous requiring iron infusions 3. BMI 42, early glucola 81 4. Hx migraines, followed by [facility] neurology, only uses acetaminophen 5. Cogswell result=low prob x3, female fetus 6. Pt and FOB do not plan to be COVID vaccinated Assessment: History Reviewed & Current Review of Systems All systems reviewed & are unremarkable except as noted in HPI and below Constitutional Constitutional: Reports system reviewed and no additional complaints, except as documented Cardiovascular Cardiovascular: Reports system reviewed and no additional complaints, except as documented Respiratory Respiratory: Reports system reviewed and no additional complaints, except as documented Gastrointestinal Gastrointestinal: Reports system reviewed and no additional complaints, except as documented Genitourinary Genitourinary: Reports system reviewed and no additional complaints, except as documented Musculoskeletal Musculoskeletal: Reports system reviewed and no additional complaints, except as documented Integumentary/Breasts Skin/Breast: Reports system reviewed and no additional complaints, except as documented Psychiatric Psychiatric: Reports system reviewed and no additional complaints, except as documented and Reports depression (treated with medication) PFSH All Active Problems (Updated 04/22/21 @ 06:48 by Lucero Ferrell) with 39 completed weeks gestation (Acute) Premature rupture of membranes (PROM) affecting second (Acute) Anemia affecting (Acute) Body mass index (BMI) of 40.1 to 44.9 in adult (Acute) Obesity (Chronic) Erythromycin allergy (Acute) Migraine headache with aura (Acute) Allergic rhinitis (Chronic) Major depressive disorder (Chronic) GERD (gastroesophageal reflux disease) (Chronic) Medical History (Updated 04/22/21 @ 06:48 by Lucero Ferrell) 35 weeks gestation of DUB (dysfunctional uterine bleeding) Elevated blood pressure affecting in third trimester, antepartum Optic disc edema Positive test Surgical History (Updated 10/05/20 @ 13:58 by Shaylee Marcial CNM) History of placement of ear tubes [place] teeth removed Family History Mother Type 2 diabetes mellitus Father No problems noted. Sister Depression ADHD Sister ADHD Sister ADHD Son No problems noted. Maternal Grandfather Heart disease Maternal Grandmother Type 2 diabetes mellitus Maternal Aunt Factor 5 Leiden mutation, heterozygous Paternal Grandfather Asthma Paternal Grandmother Asthma Social History (Updated 03/31/20 @ 10:17 by Shannon King LPN) Smoking/Tobacco Use Status: Never Smoking risk assessment performed?: Yes Alcohol Intake: never Drug use: Never Substance use type: does not use Pets and animals: Yes Pets and animals: dog(s) Frequency: daily Special zheng needs: No Seatbelt use: always Helmet use: Yes Do you feel safe at home: Yes Do you feel safe in your relationship?: Yes Female Reproductive History Menstrual control method: none History History 2 Para 1 Hx # Term Pregnancies 1 Multiple births 0 Hx # Pregnancies 0 Ectopic pregnancies 0 AB induced 0 Hx Number of Living Children 1 AB spontaneous 0 Past Pregnancies Del. Date GA/Weeks # Outcome Route Wgt Sex Labor Lgth Anesthesia Location Prov Complic 08/28/18 39 No Successful vaginal 7 lb 11 oz Male 8 hrs. 27 min. Shaylee Beebe CNM Delivery Date: 08/28/18 premature rupture of membranes induction- reason/premature rupture of membranes Bhumi San LPN Allergies and Home Medications Allergies Allergy/AdvReac Type Severity Reaction Status Date / Time erythromycin ethylsuccinate Allergy Verified 04/18/21 15:25 [From Pediazole] Home Medications Medication Instructions Recorded Confirmed Type loratadine 10 mg PO PRN PRN 02/15/16 04/18/21 History inhaler,assist devices,access #1 each 12/11/17 04/18/21 History albuterol sulfate 90 mcg/actuation 2 puff IH PRN PRN #18 g 03/29/20 04/18/21 Rx aerosol inhaler bupropion HCl 300 mg 24 hr tablet, 300 mg PO DAILY #90 tab 08/16/20 04/18/21 Rx extended release iron sucrose 200 mg iron/10 mL 200 mg IV QWEEK #10 ml 03/22/21 04/18/21 Rx intravenous solution pantoprazole 40 mg tablet,delayed 40 mg PO DAILY #90 tab 03/30/21 04/18/21 Rx release vitamin with calcium 1 tab PO DAILY #90 tab 03/30/21 04/18/21 Rx no.72-iron 27 mg-folic acid 1 mg tablet Exam Physical Exam Vital signs: Pulse BP 115 H 132/88 04/22/21 06:25 04/22/21 06:25 Vital Signs Reviewed: Yes Constitutional Constitutional: no acute distress Detailed Labor and Delivery Exam Dilation: 3 Effacement (%): 30 station: -3 Cervix position: mid Consistency: medium POLLARD Score(Cervical Ripeness Score): 4 Amniotic Membrane Status: Ruptured Rupture Method: Spontaneous Amniotic Fluid: Clear Nitrazine: Positive Fer[place]: Present Contraction Frequency(min): rare Contraction Intensity: Mild Fetus A Heart Rate Baseline: 130 Monitor Accelerations: Present Monitor Decelerations: None Variability: Moderate (6-25 BPM) Presentation: Cephalic Categories: Category I Date of Membrane Rupture: 04/22/21 Time of Membrane Rupture: 05:00 HEENT Exam HEENT Exam: Normal Neck Exam Neck Exam: Normal Chest/Brest/Axilla Exam Chest Exam: Normal Breast Exam Breast Exam: Not Done Respiratory Exam Respiratory Exam: Normal Cardiovascular Exam Cardiovascular Exam: Normal Abdominal Exam Abdominal Exam: Normal (Obese, gravid, nontender) Rectal Exam Rectal Exam: Normal Exam Exam: Normal Extremities Exam Extremities Exam: Normal Back/Spine/Pelvis Exam Back Exam: Normal Skin Exam Skin Exam: Normal Neurological Exam Neurological Exam: Normal Psychiatric Exam Psychiatric Exam: Normal (somewhat flat affect) Results Results Group Beta Strep: Negative Blood Type: A+ Rubella Status: Immune Varicella Immunity: Immune Risk Assessment Risk for Shoulder Dystocia Historical/Initial OB: POSITIVE FOR: Pre- BMI>30; NEGATIVE FOR: Pelvic Abnormality, Previous Shoulder Dystocia or Previous Macrosomia 40 Weeks: NEGATIVE FOR: EFW> 4500 gms, Maternal Weight Gain >40lb or Post Dates Date/Initial: 10/05/20 No risks Delivery Plan @ 36wks: spont labor, Risk for Pre-Eclampsia Daily Dose ASA Indicated: No Date Initiated/Initials: not indicated Yes, if one or more: NEGATIVE FOR: Hx Pre-E/Gest HTN, Chronic HTN, Multiple Gestation, Pre-gestational DM, Renal Disease, Systemic Lupus or APA Syndrome Yes, if 2 or more: POSITIVE FOR: BMI>30; NEGATIVE FOR: Nulliparity, Age>= 35 yrs, >10yr btwn pregnancies, ethinicty, Mother/Sister w/ Pre-E or Previous IUGR Risk for Post- Hemorrhage Initial: NEGATIVE FOR: Multiple Gestation, Previous PPH, Known Clotting Deficiency, Grand Multiparity or Anticoagulation At Risk?: No Interventions: began iron infusions at 35 wks for hgb 10.1 Counseled re: Active Management: Yes Risks Reviewed Risks Reviewed Upon Admission: Yes
[2021-04-22 06:55] LABS: Source Nasal/Nares
[2021-04-22 06:57] LABS: HCT 37.2 % (36.0-46.0); HGB 12.1 g/dL (11.2-15.7); MCH 28.3 pg (27.0-33.0); MCHC 32.5 % (32.0-36.0); MCV 87.1 fL (80-95); MPV 10.7 fL (8.0-11.0); Platelet Count 250 10^3/uL (130-400); RBC 4.27 10^6/uL (3.93-5.22); RDW 13.6 % (11.7-14.6); RDW-SD 42.6 fL; WBC 8.72 10^3/uL (4.4-10.8)
--- NOTE | 2021-04-22 07:48 | W.PM.OBNL1 ---
Date of service: 04/22/21 Time of Service: 07:49 Informed Consent Informed Consent: Induction of Labor (will begin with misoprostel 50 mcg PO for PROM at term) and Risk,Benefits,Alternatives Discussed Assessment and Plan Assessment and plan (1) COVID-19 affecting in third trimester: Status: Acute Assessment and plan: A: COVID swab result is positive pt denies symptoms, is afebrile Admission hgb is >12 P: Pt and FOB advised of required isolation precautions Will proceed with Misoprostel cervical ripening Objective Pulse BP 115 H 132/88 04/22/21 06:25 04/22/21 06:25 Laboratory Results WBC 8.72 10^3/uL (4.4-10.8) 04/22/21 06:47 RBC 4.27 10^6/uL (3.93-5.22) 04/22/21 06:47 Hgb 12.1 g/dL (11.2-15.7) 04/22/21 06:47 Hct 37.2 % (36.0-46.0) 04/22/21 06:47 MCV 87.1 fL (80-95) 04/22/21 06:47 MCH 28.3 pg (27.0-33.0) 04/22/21 06:47 MCHC 32.5 % (32.0-36.0) 04/22/21 06:47 RDW 13.6 % (11.7-14.6) 04/22/21 06:47 Plt Count 250 10^3/uL (130-400) 04/22/21 06:47 MPV 10.7 fL (8.0-11.0) 04/22/21 06:47 COVID-19 Source Nasal/Nares 04/22/21 06:48 Subjective Patient Reports: No new Complaints Results Hemoglobin/Hematocrit: Hgb 12.1 g/dL (11.2-15.7) 04/22/21 06:47 Hct 37.2 % (36.0-46.0) 04/22/21 06:47
[2021-04-22 08:53] LABS: COVID-19 PCR POSITIVE (Negative)
[2021-04-22] MEDS: miSOPROStol 50 MCG TAB PO (09:09)
--- NOTE | 2021-04-22 12:52 | W.PM.OBNL1 ---
Date of service: 04/22/21 Time of Service: 12:52 Informed Consent Informed Consent: Induction of Labor (will begin with misoprostel 50 mcg PO for PROM at term) and Risk,Benefits,Alternatives Discussed Assessment and Plan Assessment and plan (1) COVID-19 affecting in third trimester: Status: Acute (2) with 39 completed weeks gestation: Status: Acute (3) Premature rupture of membranes (PROM) affecting second : Status: Acute (4) Encounter for induction of labor: Status: Acute Assessment and plan: A: Latent phase labor after 1 dose of misprostel PO IOL for PROM at term COVID infection, asymptomatic Pt reaffirms her desire for unmedicated labor & P: Will repeat misoprostel dose x1 Comfort measures as needed Anticipate later today Dr. Hughes consulting Objective Vital Signs Reviewed: Yes Objective Narrative Objective Narrative: Category 1 tracing with occasional early Cvx 4-5/60% vtx -2 Normotensive and afebrile Coping well with discomforts [place] EFM allowing pt to ambulate without difficulty in her room Subjective Interval history since last seen: Contractions have increased since taking misoprostel, feeling pressure in her back Procedure Procedures: Cervical Ripening Cervical Ripening: Misoprostol
[2021-04-22] MEDS: miSOPROStol 50 MCG TAB (12:56)
--- NOTE | 2021-04-22 17:01 | W.PM.OBNL1 ---
Date of service: 04/22/21 Time of Service: 16:02 Pelvic Exam Dilation: 5.5 Effacement (%): 100 station: -2 Cervix Position: anterior Consistency: soft Vaginal Exam Presentation: Cephalic Contractions Contraction Frequency(min): q3-4 Contraction Duration(sec): 50-70 Intensity: Moderate Fetus A Monitor: External (US) Heart Rate Baseline: 150 Presentation: Cephalic Variability: Moderate (6-25 BPM) Categories: Category I Accelerations: Present Decelerations: Early Amniotic Membrane Status: Ruptured Assessment and Plan Assessment and plan (1) Encounter for induction of labor: Status: Acute Assessment and plan: A: Active labor after 2 doses of misprostel for cervical ripening Tolerating PO fluid intake well P: Will recheck for progress in 2 hours, Plan for pitocin augmentation if progress is minimal Anticipate this evening Objective Vital Signs Reviewed: Yes Objective Narrative Objective Narrative: Pt requesting cvx check as she feels increased pelvic pressure Cvx has advanced to 5-6/100% vtx -2, clear fluid draining from introitus Discussed slowed progress with pt and R&B of pitocin augmentation VSS, category 1 tracing Pt has been ambulating in her room, using physioball Subjective Interval history since last seen: Pt reporting increased feeling of pelvic pressure Results Abnormal Lab Findings:
--- NOTE | 2021-04-22 18:05 | W.PM.OBNL1 ---
Date of service: 04/22/21 Time of Service: 18:05 Informed Consent Informed Consent: Augmentation of Labor and Risk,Benefits,Alternatives Discussed Pelvic Exam Dilation: 6 Effacement (%): 100 station: -2 Consistency: soft Vaginal Exam Presentation: Cephalic Contractions Monitor Mode: External Contraction Frequency(min): irregular q3-5 Intensity: Moderate Fetus A Monitor: External (US) Heart Rate Baseline: 145 Variability: Moderate (6-25 BPM) Categories: Category I Accelerations: 15 X 15 Decelerations: None Amniotic Membrane Status: Ruptured Assessment and Plan Assessment and plan (1) Encounter for induction of labor: Status: Acute Assessment and plan: A: multipara, PROM, slow progress after cervical ripening completed now 6/100% vtx -2, clear fluid observed category 1 tracing P: Begin pitocin augmentation Anticipate Dr. Hughes available for consult if needed Objective Vital Signs Reviewed: Yes Subjective Interval history since last seen: Contractions are feeling more intense Interventions Augmentation , Pitocin rate (mU/min): 2 Slow progression of labor after cervical ripening done for PROM at term. .
[2021-04-22] MEDS: Lactated Ringers 1,000 ML 125 ML IV (18:24)
[2021-04-22] MEDS: Oxytocin/Normal Saline 30 UNIT/500 ML BAG 2 UNITS IV (18:56)
[2021-04-22] MEDS: Oxytocin 10 UNITS/ML VIAL IM (22:08)
--- NOTE | 2021-04-22 22:15 | PLAC_PTH ---
PATIENT: Beth Lopez LOC: OBS U#:[id number] AGE/SX: 25/F ROOM: OBS.305 RE04/22/[address]: Lucero Ferrell CNM : 1995 BED: A DIS: 04/24/2021 SPEC #: [id number] RECD: 04/25/21 12:11 STATUS: APRIL REQ #: [id number] JAMISON: 04/22/21 22:[address]: Lucero Ferrell DEPT: Surgical Specimen RECD BY: Kaleigh Leblanc ENTERED: 04/25/21 12:13 SP TYPE: PLAC OTHR DR: LAURI NelsonP Tissues: 1 - PLACENTA (3RD TRIMESTER) Procedures: GROSS AND MICRO LEVEL 5 Comments: [id number]
--- NOTE | 2021-04-22 23:11 | OBVDS_ITS ---
Date of service: 04/22/21 Time of Service: 23:11 OB Labor/ Delivery Information Baby A Delivery Delivery Method: Spontaneaous Presentation: Cephalic Cephalic Position: Vertex Vertex Position: Right Occipital Anterior Breech Position: N/A Cord Description-Baby A: 3 Vessels Amniotic Fluid: Clear Estimated Blood Loss: 350 Delivery Outcome: Liveborn Infant Transferred: Remains with Mother Note: After pitocin augmentation was begun @ 6 cm dilation, contractions rapidly increased in frequency and intensity. With pitocin at 3 MU/min pt began involuntarily bearing down. Cvx exam found descent to 0 station with 8 cm cervix, FHT remained category 1. Maternal position changes from standing to left side to H&K, then return to left side with manual reduction of anterior lip resulted in in left lateral position of a vigorous female infant over attempted intact perineum. Infant's mouth and nose sx on the field and placed in mother's arms, pitocin infusion for bolus begun. Cord ceased pulsating, was clamped and cut by FOB, cord blood collected. Gentle cord traction with maternal effort failed to deliver placenta which was partially palpable in the vaginal vault, cord began to evulse. Manual removal of placenta accomplished via Calderón mechanism with cord remaining attached to membranes. An additional dose of pitocin 10 units given IM, fundus firm, minimal lochia noted. 2nd degree laceration noted cleanly along old laceration scar, well approximated, 3 interrupteds placed for stabilization. On close inspection, placenta is intact with 3VC, areas of infarct are noted, sent to pathology for description. Pt tolerated procedures well, EBL 350ml, strong family bonding observed. Apgars 8/9, weight 4040 gms. Providers Nurse Boot Lace Cutter Machine: Lucero Ferrell Nurse: Oralia Saul Labor/Delivery Information Number of Babies in Womb: 1 Steroids Given: None Reason Steroids Not Administered: N/A Group Beta Strep: Negative Antibiotics Administered: No Rubella Status: Immune Blood Type: A+ Varicella Immunity: Immune Maternal Complications: None Shoulder Dystocia: No Stages of Labor Onset of Labor Date: 04/22/21 Onset of Labor Time: 11:00 Complete Dilatation Date: 04/22/21 Complete Dilatation Time: 21:57 Labor - Stage 1 Duration: 0 minutes ROM Baby A: 04/22/21 ROM Baby A: 05:00 ROM Total Time- Baby A: [id number] Infant Delivery Date-Baby A: 04/22/21 Delivery Time-Baby A: 22:04 Labor Stage 2 Duration: 7 minutes Placenta Delivery Date-Baby A: 04/22/21 Placenta Delivery Time-Baby A: 22:15 Labor-Stage 3 Duration: 11 minutes Total Length of Labor-Baby A: 11 hours and 4 minutes Placenta Cultured: No Placenta Status: Delivered (manual removal after cord began to evulse with gentle traction and maternal effort. Careful inspection reveals placenta is intact, cord remains attached to membranes, small areas of infarct noted., to pathology for description.) Baby A Gender: Female Gestational Status: Term (39-41.6 wks) Gestational Age in Weeks/Days: 39 Weeks and 6 Days weight: 8 lb 14.507 oz Weight Comment: 4040 gms Score-1 Minute Interval(Baby A) Heart Rate-1 minute: 100 BPM or Greater Respiratory Effort- 1 minute: Spontaneous/Strong Cry Muscle Tone-1 minute: Active Movement Reflex Response-1 minute: Prompt Response Color-1 minute: Pallor or Cyanosis Total Score-1 minute: 8 Score-5 Minute Interval(Baby A) Heart Rate- 5 minute: 100 BPM or Greater Respiratory Effort-5 minute: Spontaneous/Strong Cry Muscle Tone-5 minute: Active Movement Reflex Response-5 minute: Prompt Response Color-5 minute: Bluish Hands or Feet Total Score- 5 minute: 9 Procedure Procedures: Cord Blood Collection Interventions Repair of Laceration Type: Perineal , Laceration Extension: Second Degree (old 2nd degree scar opened cleanly) . Sponge Count Correct: No Sponges Placed in Vagina , Sharp Count Correct: Yes . Laceration Repair Note: 3 interrupted stitches of Vicryl placed in perineal laceration to stabilize approximation
[2021-04-22] MEDS: Ibuprofen 600 MG TAB PO (23:30)
[2021-04-22] MEDS: Acetaminophen 325 MG TAB 650 MG PO (23:30)
[2021-04-22] MEDS: Pantoprazole 40 MG TABCR PO (23:30)
[2021-04-22] MEDS: buPROPion-XL 150 MG TABCR 300 MG PO (23:30)
[2021-04-23 01:25] VITALS: BP 117/71; PULSE 76
[2021-04-23 07:21] LABS: HGB 10.7 g/dL (11.2-15.7); MCH 28.2 pg (27.0-33.0); MCHC 32.4 % (32.0-36.0); MCV 87.1 fL (80-95); MPV 10.5 fL (8.0-11.0); Platelet Count 221 10^3/uL (130-400); RBC 3.79 10^6/uL (3.93-5.22); RDW 13.7 % (11.7-14.6); WBC 16.43 10^3/uL (4.4-10.8)
[2021-04-23 08:24] VITALS: BP 117/65; PULSE 89; RESP 16; TEMP 36.6
[2021-04-23] MEDS: Acetaminophen 325 MG TAB 650 MG PO ×3 (08:41→23:13)
[2021-04-23] MEDS: Dibucaine 1% 28 GM TUBE TP (08:41)
[2021-04-23] MEDS: Docusate Sodium 100 MG CAP PO (08:41)
[2021-04-23] MEDS: Ibuprofen 600 MG TAB PO ×3 (08:42→23:13)
[2021-04-23] MEDS: Hamamelis Leaf/Glycerin 100 EACH BOX PR (08:42)
[2021-04-23 19:40] VITALS: BP 124/86; PULSE 82; RESP 16; TEMP 36.3; O2SAT 98
--- NOTE | 2021-04-23 22:25 | OBPPV_ITS ---
Date of service: 04/23/21 Time of Service: 15:25 Assessment and Plan Assessment and plan (1) Term delivered: Status: Acute Assessment and plan: A: PPD#1, nml recovery off to a good start Satisfied with experience P: Expecting discharge to home tomorrow FOB planning vasectomy for BCM Continue routine care and support (2) COVID-19 affecting in third trimester: Status: Acute Assessment and plan: Remains asymptomatic: afebrile, feels well Isolation precautions have been in effect Subjective Subjective Patient comments: Pain well controlled, Tolerating diet and Flatus present [place] baby status: Doing well, Nursing well, Rooming in and Strong Bonding Observed feeding status: Exclusively breast feeding Exam Physical Exam Vital signs: Temp Pulse Resp BP Pulse Ox 97.4 F L 82 16 124/86 98 04/23/21 19:40 04/23/21 19:40 04/23/21 19:40 04/23/21 19:40 04/23/21 19:40 Vital Signs Reviewed: Yes Constitutional Constitutional: no acute distress HEENT Exam HEENT Exam: Normal Neck Exam Neck Exam: Normal Breast Exam Bilateral: Breast Exam: Normal and Soft Nipple Exam: Normal and Uninjured Respiratory Exam Respiratory Exam: Normal Cardiovascular Exam Cardiovascular Exam: Normal Abdominal Exam Abdomen: Other (obese, soft) Fundal Exam Fundus: Below Umbilicus and Firm Rectal Exam Rectal Exam: Not Done Exam Perineum: Repair Intact Extremities Exam Extremity Exam: Normal Back/Spine/Pelvis Exam Back Exam: Normal Skin Exam Skin Exam: Normal Neurological Exam Neurological Exam: Normal Psychiatric Exam Psychiatric Exam: Normal Results Hemoglobin/Hematocrit: Hgb 10.7 g/dL (11.2-15.7) L 04/23/21 07:15 Hct 33.0 % (36.0-46.0) L 04/23/21 07:15
[2021-04-23] MEDS: buPROPion-XL 150 MG TABCR 300 MG PO (23:12)
[2021-04-23] MEDS: Pantoprazole 40 MG TABCR PO (23:13)
[2021-04-24] MEDS: Docusate Sodium 100 MG CAP PO (06:19)
[2021-04-24] MEDS: Acetaminophen 325 MG TAB 650 MG PO (06:19)
[2021-04-24] MEDS: Ibuprofen 600 MG TAB PO (06:19)
[2021-04-24 08:30] VITALS: BP 115/80; PULSE 82; RESP 20; TEMP 36.6; O2SAT 97
--- NOTE | 2021-04-24 09:01 | W.PM.OBDISCH ---
Date of service: 04/24/21 Time of Service: 09:01 DS: Diagnosis Discharge Diagnosis (1) Term delivered: Status: Acute (2) COVID-19 affecting in third trimester: Status: Acute Discharge Plan Disposition Patient Disposition: HOME Condition: Good Discharge Details Reason For Visit: R/O SROM at Term Admit Date/Time: 04/22/21 06:26 Admit Provider: Lucero Ferrell Attending Provider: Lucero Ferrell Primary Care Provider: Cindy Hill Hospital Course Hospital Course: PROM without labor upon admission, cervix unfavorable, cervical ripening accomplished with misoprostel followed by pitocin augmentation resulting in , normal course, discharge to home on day #2 Home Meds and New Rx's Prescriptions: No Action iron sucrose 200 mg iron/10 mL solution 200 mg IV QWEEK Qty: 10 RF: 0 pantoprazole [Protonix] 40 mg tablet,delayed release (DR/EC) 40 mg PO DAILY Qty: 90 RF: 1 PrePlus 27 mg iron- 1 mg tablet 1 tab PO DAILY Qty: 90 RF: 4 bupropion HCl [Wellbutrin XL] 300 mg tablet extended release 24 hr 300 mg PO DAILY Qty: 90 RF: 4 loratadine 10 MG tablet 10 mg PO PRN PRNRF: 0 albuterol sulfate [ProAir HFA] 90 mcg/actuation HFA aerosol inhaler 2 puff IH PRN PRN (Reason: shortness of breath or wheezing) Qty: 18 RF: 4 Discharge Instructions Additional Instructions: Please call the office Sunday to make your 2 & 6 week 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 Call for any questions or concerns, especially if you feel you are experiencing increasing symptoms of depression or sadness, or if you have increasing COVID symptoms. Stand Alone Forms: BC Instructions, BC Post Vaginal Deliver Activity:: Activity as Tolerated Equipment/Supplies:: No Equipment Needed Diet:: Normal Diet OB:DS Summary Summary Vaginal Delivery Method: Spontaneaous Episiotomy Description: None Laceration Description: Perineal Laceration Extension: Second Degree (old 2nd degree scar opened cleanly) Contraception Discussed Contraception Discussed: Yes Contraceptive Plan: Vasectomy and Undecided (will need interim method, to discuss at 2 week pp visit.), [place] Infant Gender-Baby A: Female weight: 8 lb 14.507 oz Status at Discharge Functional status at discharge: independent ambulation Overall status at discharge: patient is progressing back to baseline Mental Status: mental status grossly normal Speech and Movement: speech and movement normal and speech clear Mood: congruent mood Affect: normal affect Exam Physical Exam Vital signs: Temp Pulse Resp BP Pulse Ox 97.4 F L 82 16 124/86 98 04/23/21 19:40 04/23/21 19:40 04/23/21 19:40 04/23/21 19:40 04/23/21 19:40 Constitutional Constitutional: no acute distress HEENT Exam HEENT Exam: Normal Neck Exam Neck Exam: Normal Breast Exam Bilateral: Breast Exam: Normal and Soft Respiratory Exam Respiratory Exam: Normal Cardiovascular Exam Cardiovascular Exam: Normal Abdominal Exam Abdomen: Other (obese, soft) Fundal Exam Fundus: Below Umbilicus and Firm Rectal Exam Rectal Exam: Not Done Exam Perineum: Repair Intact Extremities Exam Extremity Exam: Normal Back/Spine/Pelvis Exam Back Exam: Normal Skin Exam Skin Exam: Normal Neurological Exam Neurological Exam: Normal Psychiatric Exam Psychiatric Exam: Normal PFSH All Active Problems (Updated 04/23/21 @ 22:27 by Lucero Ferrell) Term delivered (Acute) COVID-19 affecting in third trimester (Acute) Body mass index (BMI) of 40.1 to 44.9 in adult (Acute) Obesity (Chronic) Erythromycin allergy (Acute) Migraine headache with aura (Acute) Allergic rhinitis (Chronic) Major depressive disorder (Chronic) GERD (gastroesophageal reflux disease) (Chronic) Medical History (Updated 04/23/21 @ 22:27 by Lucero Ferrell) 35 weeks gestation of Anemia affecting DUB (dysfunctional uterine bleeding) Elevated blood pressure affecting in third trimester, antepartum Encounter for induction of labor for PROM at term Optic disc edema Positive test with 39 completed weeks gestation Premature rupture of membranes (PROM) affecting second Surgical History (Updated 10/05/20 @ 13:58 by Shaylee Marcial CNM) History of placement of ear tubes [place] teeth removed Family History Mother Type 2 diabetes mellitus Father No problems noted. Sister Depression ADHD Sister ADHD Sister ADHD Son No problems noted. Maternal Grandfather Heart disease Maternal Grandmother Type 2 diabetes mellitus Maternal Aunt Factor 5 Leiden mutation, heterozygous Paternal Grandfather Asthma Paternal Grandmother Asthma Social History (Updated 03/31/20 @ 10:17 by Shannon King LPN) Smoking/Tobacco Use Status: Never Smoking risk assessment performed?: Yes Alcohol Intake: never Drug use: Never Substance use type: does not use Pets and animals: Yes Pets and animals: dog(s) Frequency: daily Special zheng needs: No Seatbelt use: always Helmet use: Yes Do you feel safe at home: Yes Do you feel safe in your relationship?: Yes Female Reproductive History Menstrual control method: none History History 2 Para 1 Hx # Term Pregnancies 1 Multiple births 0 Hx # Pregnancies 0 Ectopic pregnancies 0 AB induced 0 Hx Number of Living Children 1 AB spontaneous 0 Past Pregnancies Del. Date GA/Weeks # Outcome Route Wgt Sex Labor Lgth Anesthesia Location Prov Complic 08/28/18 39 No Successful vaginal 7 lb 11 oz Male 8 hrs. 27 min. Shaylee Beebe CNM Delivery Date: 08/28/18 premature rupture of membranes induction- reason/premature rupture of membranes Bhumi San LPN DS: Data Vitals/I&O Vitals and I&O: Vital Signs Temperature 97.4 F L 04/23/21 19:40 Pulse 82 04/23/21 19:40 Pulse Rhythm Regular 04/23/21 19:56 Respiratory Rate 16 04/23/21 19:40 Blood Pressure 124/86 04/23/21 19:40 Blood Pressure Mean 98 04/23/21 19:40 Pulse Oximetry 98 04/23/21 19:40 Pain Level 3 04/24/21 06:19 Comment 04/22/21 11:45 Intake & Output 04/23/21 04/23/21 04/24/21 11:59 23:59 11:59 Intake Total 1302.133 / 1302.133 Output Total 2099 Balance -797.867 / -797.867 Intake: IV 1302.133 / 1302.133 Output: Urine 2099 Other: Urine Color Pale
--- NOTE | 2021-04-24 09:07 | W.PM.OBPNV1 ---
Date of service: 04/24/21 Time of Service: 09:08 Assessment and Plan Assessment and plan (1) Term delivered: Status: Acute Assessment and plan: A: PPD#2, nml recovery going well Satisfied with experience P: Expecting discharge to home today Will need interim BCM while awaiting vasectomy Written instructions reviewed and given to pt Pt is taking Wellbutrin XL 300 mg PO daily Has hx of PPD, sx discussed w/pt, advised to call and report concerns (2) COVID-19 affecting in third trimester: Status: Acute Assessment and plan: Remains asymptomatic: afebrile, feels well Isolation precautions have been in effect (3) At risk for depression: Status: Acute Assessment and plan: Pt already taking anti-anxiety/depression medication, Advised to call for early onset of PPD symptoms Will f/up at 2 weeks in office Subjective Subjective Patient comments: Pain well controlled, Tolerating diet, Flatus present and Bowel Movement baby status: Doing well, Nursing well, Rooming in and Strong Bonding Observed feeding status: Exclusively breast feeding Exam Physical Exam Vital signs: Temp Pulse Resp BP Pulse Ox 97.4 F L 82 16 124/86 98 04/23/21 19:40 04/23/21 19:40 04/23/21 19:40 04/23/21 19:40 04/23/21 19:40 Vital Signs Reviewed: Yes Constitutional Constitutional: no acute distress HEENT Exam HEENT Exam: Normal Neck Exam Neck Exam: Normal Breast Exam Bilateral: Breast Exam: Normal and Soft Respiratory Exam Respiratory Exam: Normal Cardiovascular Exam Cardiovascular Exam: Normal Abdominal Exam Abdomen: Other (obese, soft) Fundal Exam Fundus: Below Umbilicus and Firm Rectal Exam Rectal Exam: Not Done Exam Perineum: Repair Intact Extremities Exam Extremity Exam: Normal Back/Spine/Pelvis Exam Back Exam: Normal Skin Exam Skin Exam: Normal Neurological Exam Neurological Exam: Normal Psychiatric Exam Psychiatric Exam: Normal Results Hemoglobin/Hematocrit: Hgb 10.7 g/dL (11.2-15.7) L 04/23/21 07:15 Hct 33.0 % (36.0-46.0) L 04/23/21 07:15 Abnormal Lab Findings: Abnormal Labs 04/22/21 04/23/21 06:48 07:15 WBC 16.43 H D RBC 3.79 L Hgb 10.7 L Hct 33.0 L SARS-CoV-2 (PCR) POSITIVE A* Hemorrrhage Note IV Site Right Antecubital: IV Catheter Gauge: 20
== END 2021-04-24 11:45 | disposition home or self-care (01) | DRG 805 ==
PROVIDERS: Admitting Provider Advanced Practice Midwife; PCP Nurse Practitioner Family; Visit Provider Advanced Practice Midwife
DX: O42.02 Full-term premature rupture of membranes, onset of labor within 24 hours of rupture (principal); U07.1 COVID-19; Z37.0 Single live birth; O98.52 Other viral diseases complicating childbirth; O99.354 Diseases of the nervous system complicating childbirth; Z3A.40 40 weeks gestation of pregnancy; O70.1 Second degree perineal laceration during delivery; O99.214 Obesity complicating childbirth; E66.01 Morbid (severe) obesity due to excess calories; O99.344 Other mental disorders complicating childbirth; F32.A Depression, unspecified; O99.02 Anemia complicating childbirth; D64.9 Anemia, unspecified; O99.62 Diseases of the digestive system complicating childbirth; G43.909 Migraine, unspecified, not intractable, without status migrainosus; K21.9 Gastro-esophageal reflux disease without esophagitis
CPT/HCPCS: 36415; 85027; 86850; 86900; 86901; 87635; 88307; J2590

== ENCOUNTER 2022-05-22 01:01 | Outpatient (CLI) | payer MEDICAID, SELFPAY ==
--- NOTE | 2022-05-22 08:15 | DI.MRI_ITS ---
Exam(s) MR LOWER JOINT LT WO EXAM: MR LOWER JOINT LT WO CLINICAL HISTORY: suspected LCL injury,,s89.90XA. TECHNIQUE: Multiplanar multisequence MRI was performed. COMPARISON: No exams were available for comparison FINDINGS: BONES: There is no fracture or contusion pattern. JOINTS: A small joint effusion is present. Articular cartilage: Patellofemoral joint: Articular cartilage is unremarkable. Medial femoral tibial joint: Car focal area of cartilage thinning extending down to bone at the media l femoral condyle adjacent to the medial meniscus. Lateral femoral tibial joint: Articular cartilage is unremarkable. TENDONS: Extensor mechanism: Unremarkable. Medial retinaculum: Unremarkable. Lateral retinaculum: Unremarkable. Popliteus: Unremarkable. MUSCLES: Unremarkable. MENISCI: Horizontal tear posterior horn medial meniscus. The lateral meniscus is unremarkable. SOFT TISSUES: Unremarkable. LIGAMENTS: Anterior Cruciate: Not visualized, presumed torn. Posterior Cruciate: Unremarkable. Medial Collateral:Unremarkable. Lateral Collateral: Thickening at proximal lateral collateral ligament but no evidence of edema or te ar. IT band and hamstring tendon intact. OTHER: Small Lechuga's cyst. IMPRESSION: Anterior cruciate ligament not visualized, presumed complete tear. Horizontal tear the posterior horn of the medial meniscus. Small cartilage defect extending down to bone medial femoral condyle. Thickening at the proximal lateral collateral ligament without associated edema. Findings may be chr onic. DATA REPOSITORY:
== END 2022-05-22 01:21 ==
LOC: DI 01:01
PROVIDERS: PCP Nurse Practitioner Family; Visit Provider Nurse Practitioner Family
DX: S83.242A Other tear of medial meniscus, current injury, left knee, initial encounter (principal); X58.XXXA Exposure to other specified factors, initial encounter; R93.7 Abnormal findings on diagnostic imaging of other parts of musculoskeletal system
CPT/HCPCS: 73721

== ENCOUNTER → 2023-04-27 00:33 | Outpatient (CLI) | payer MEDICAID, SELFPAY ==
--- NOTE | 2023-04-27 06:43 | DI.US_ITS ---
Exam(s) US ABDOMEN LIMITED EXAM: US ABDOMEN LIMITED CLINICAL HISTORY: ruq pain,diarrhea,+fam His/,r10.11 TECHNIQUE: Ultrasound abdomen performed using standard protocol. COMPARISON: No exams were available for comparison FINDINGS: LIVER: Liver measures 17 cm in length. Mild hepatic steatosis. No focal liver lesions are seen. GALLBLADDER: No evidence of cholelithiasis. No evidence of wall thickening. No pericholecystic fluid identified. ZEE'S SIGN: Negative. BILIARY SYSTEM: No intrahepatic or extrahepatic biliary ductal dilation. Right kidney no evidence of renal calculi. No evidence of hydronephrosis. No renal mass or cyst ident ified. PANCREAS: Normal where visualized. Mostly obscured by bowel gas. ABDOMINAL AORTA AND IVC: Visualized portions normal caliber. ASCITES: None seen. IMPRESSION: Gallbladder normal. Mild hepatic steatosis. DATA REPOSITORY:
== END ==
PROVIDERS: PCP Nurse Practitioner Family; Visit Provider Surgery
DX: K76.0 Fatty (change of) liver, not elsewhere classified (principal)
CPT/HCPCS: 76705

== ENCOUNTER → 2023-06-06 00:53 | Outpatient (CLI) | payer MEDICAID, SELFPAY ==
--- NOTE | 2023-06-06 07:18 | DI.NM_ITS ---
Exam(s) NM HEPATOBILIARY CCK GRP EXAM: NM HEPATOBILIARY CCK GRP CLINICAL HISTORY: ruq pain diarrhea/USneg,gerd,r19.7,r10.11. TECHNIQUE: Injected dose: 4.9 mCi Tc-99 mebrofenin Initial dynamic images: 60 minutes Post-Gallbladder fillin.02 mcg/kg CCK intravenously over a 30min infusion. Additional images: 30 minute dynamic during CCK administration. COMPARISON: US US ABDOMEN LIMITED from 04/27/2023 FINDINGS: Normal hepatic transit time. Prompt excretion into the small bowel. Prompt excretion into the gallbladder. Gallbladder ejection fraction: 88 percent, in the normal range. IMPRESSION: 1. Normal gallbladder ejection fraction. SN guidelines: Gallbladder visualization should be present by 3 hours. Delayed [id number] parr sit beyond 60 min raises the suspicion for partial common bile duct (CBD) obstruction. Gallbladder ejection fraction <35% has a good correlation with acalculous disease (i.e., chronic acal culous cholecystitis, cystic duct syndrome, sphincter of Oddi disease).
[2023-06-06] MEDS: Sincalide 5 MCG VIAL 1.7 MCG IJ (10:12)
== END ==
PROVIDERS: PCP Nurse Practitioner Family; Visit Provider Surgery
DX: E66.01 Morbid (severe) obesity due to excess calories; Z68.42 Body mass index [BMI] 45.0-49.9, adult; K21.9 Gastro-esophageal reflux disease without esophagitis
CPT/HCPCS: 78227; J2805

== ENCOUNTER 2023-09-26 10:47 | Outpatient (CLI) | payer MEDICAID, SELFPAY ==
[2023-09-26 11:33] LABS: Anion Gap 5.9 mmol/L (3-11); BUN 15 mg/dL (7-18); CO2 32.1 mmol/L (21.0-32.0); CREATININE 1.1 mg/dL (0.55-1.02); Calcium 9.4 mg/dL (8.5-10.1); Calculated LDL 143 mg/dL (<100); Chloride 104 mmol/L (98-107); Cholesterol 215 mg/dL (<200); Estimated GFR 71.51 (mL/min/1.73m2); Glucose 104 mg/dL (74-106); HDL Cholesterol 41 mg/dL (40-60); Potassium 4.4 mmol/L (3.5-5.1); Sodium 142 mmol/L (136-145); TSH (W/Ref FT4) 3.62 uIU/mL (0.36-3.74); Triglyceride 159 mg/dL (<150)
== END 2023-09-26 10:48 | disposition home or self-care (01) ==
LOC: LBO 10:48
PROVIDERS: PCP Nurse Practitioner Family; Visit Provider Nurse Practitioner Family
DX: Z00.00 Encounter for general adult medical examination without abnormal findings (principal)
CPT/HCPCS: 36415; 80048; 80061; 83036; 84443

== ENCOUNTER 2023-10-18 13:39 | Outpatient (REF) | payer MEDICAID, SELFPAY | END 2023-10-18 13:40 | disposition home or self-care (01) | LOC: LBN 13:39 | PROVIDERS: PCP Nurse Practitioner Family; Visit Provider Physician Assistant Medical | DX: J35.8 Other chronic diseases of tonsils and adenoids (principal) | CPT/HCPCS: 87070 ==

== ENCOUNTER 2024-07-17 01:08 | Outpatient (CLI) | payer MEDICAID, SELFPAY ==
[2024-07-17 13:04] LABS: Hemoglobin A1C 5.7 % (<5.7)
== END 2024-07-17 01:09 | disposition home or self-care (01) ==
PROVIDERS: PCP Nurse Practitioner Family; Visit Provider Nurse Practitioner Family
DX: E11.9 Type 2 diabetes mellitus without complications (principal)
CPT/HCPCS: 36415; 83036

== ENCOUNTER 2024-10-08 09:36 | Outpatient (REF) | payer MEDICAID, SELFPAY ==
--- NOTE | 2024-10-08 09:20 | PAPFT_PTH ---
PATIENT: Beth Lopez LOC: [facility] U#:[id number] AGE/SX: 28/F ROOM: RE10/08/[address]: Raisa Reveles NP : 1995 BED: DIS: 10/08/2024 SPEC #: [id number] RECD: 10/08/24 12:04 STATUS: APRIL REAlexx #: [id number] JAMISON: 10/08/24 09:[address]: Raisa Reveles NP DEPT: [facility] Cytology RECD BY: Lizzie Lim ENTERED: 10/08/24 12:04 SP TYPE: PAPFT OTHR DR: Brittnee Reilly NP Tissues: 1 - CX/ENDOCX FOR PAP SMEARS Procedures: PAP THIN PREP/[facility] Screening Comments: [id number] (CHLAMYDIA/GC)
[2024-10-09 12:25] LABS: Chlamydia Result Negative (Negative); GC Result Negative (Negative)
== END 2024-10-08 09:37 | disposition home or self-care (01) ==
LOC: LBN 09:36
PROVIDERS: PCP Nurse Practitioner Family; Visit Provider Nurse Practitioner Women's Health
DX: Z12.4 Encounter for screening for malignant neoplasm of cervix (principal); Z11.3 Encounter for screening for infections with a predominantly sexual mode of transmission
CPT/HCPCS: 87491; 87591; 88142